=== PATIENT | female | born 1965 | race Caucasian/White ===

== ENCOUNTER → 2018-07-12 12:25 | Outpatient (CLI) | payer BC, OTHER, SELFPAY ==
--- NOTE | 2018-07-12 | DI.MG.S_ITS ---
BILATERAL DIGITAL SCREENING MAMMOGRAM 3D/2D WITH CAD: 07/12/2018 CLINICAL: Routine screening. Comparison is made to exams dated: 06/18/2017 mammogram, 04/08/2015 mammogram, and 02/21/2014 mammogram - [facility]. The tissue of both breasts is extremely dense, which lowers the sensitivity of mammography. Current study was also evaluated with a Computer Aided Detection (CAD) system. There are calcifications in the upper left breast that appear stable when compared with prior exam of 06/18/2017. There is a circular mole marker overlying the left breast. No significant masses, calcifications, or other findings are seen in either breast. There has been no significant interval change. IMPRESSION: BENIGN There is no mammographic evidence of malignancy. A 1 year screening mammogram is recommended. This exam was interpreted at Station ID: [id number]. NOTE: For mammograms, a report in lay terms will be sent to the patient. Approximately 15% of breast malignancies will not be visualized mammographically. In the management of a palpable breast mass, a negative mammogram must not discourage biopsy of a clinically suspicious lesion. Electronically Signed By: Kiran Palmer M.D. ecl/:07/14/2018 07:37:41 letter sent: Normal Exam ACR BI-RADS Category 2: Benign Finding(s) [id number]
== END ==
PROVIDERS: Family Provider Family Medicine; PCP Family Medicine; Visit Provider Family Medicine
DX: Z12.31 Encounter for screening mammogram for malignant neoplasm of breast (principal)
CPT/HCPCS: 77063; 77067

== ENCOUNTER → 2018-12-25 11:45 | Outpatient (CLI) | payer BC, SELFPAY ==
--- NOTE | 2018-12-25 11:47 | DI.RAD.S_ITS ---
PROCEDURE: XR RIBS LT MIN 3V W CXR1V INDICATIONS: R/O Fx TECHNIQUE: 3 views of the left ribs were acquired, to include a single view chest. COMPARISON: None. FINDINGS: Surgical changes and devices: None. Bones and chest wall: No fractures or dislocations. No suspicious bony lesions. Overlying soft tissues appear unremarkable. Lungs and pleura: No pleural effusions or pneumothorax. Lungs appear clear. Mediastinum: Mediastinal contours appear normal. Heart size is normal. IMPRESSION: Chest without acute cardiopulmonary abnormalities. No acute rib fractures identified. Dictated by: George Brown M.D. on 12/25/2018 at 12:35 Approved by: George Brown M.D. on 12/25/2018 at 12:37
== END ==
PROVIDERS: PCP Family Medicine; Visit Provider Physician Assistant
DX: R07.81 Pleurodynia (principal)
CPT/HCPCS: 71101

== ENCOUNTER 2019-04-19 10:00 | Outpatient (RCR) | payer BC, OTHER, SELFPAY ==
--- NOTE | 2019-02-09 10:11 | PT.OIE ---
Current Diagnoses Cystocele, unspecified (02/07/19) Rectocele (02/07/19) Provider Visit Care Team Role Provider Type Venu Valles MD Primary Care Provider Physician Specialty: Family Practice Address: [address] [place], [address] Email: [email or web address] Yaneth Sandoval MD Attending Provider Physician Specialty: MATHS TUTOR Address: [address] [place] [address], [address] Email: [email or web address] Physical Therapy Initial Evaluation PT-OP-A Visit Information Start: 02/07/19 13:44 Freq: Status: Active Protocol: Document 02/07/19 13:45 [facility] (Rec: 02/07/19 14:03 [facility] [id number]) Out-Patient Physical Therapy Visit Information Visit Information Visit Type Initial Evaluation Visit Start Time 13:45 Visit Stop Time 14:30 Total Visit Minutes 45 Visit Number 1 Evaluation Information Evaluation Date 02/07/19 PT-OP-B Current Condition Start: 02/07/19 13:44 Freq: Status: Active Protocol: Document 02/07/19 13:45 [facility] (Rec: 02/07/19 14:03 [facility] [id number]) Current Condition History of Current Condition Onset Date October 2018 Current Complaints pelvic organ prolapse History of Current Condition reports in October she began to feel like she had fullness in her pelvic floor after her cycle finished. Experiencing some c/o pre menopausal symptoms and is noticing that before her menstrual cycle is suppost to start she is feeling fullness in her pelvic floor and increased pressure along iwth some c/o low back soreness. She denies any c/o urinary incontinence or urgency. Prior Functional Status Baseline Function- ADL's Independent Baseline Function- Mobility Independent Baseline Function- Recreation/Hobbies The patient likes to run for exercise and she can feel fullness in her pelvic floor with running at times PT-OP-F Manual Assessment Start: 02/08/19 10:41 Freq: Status: Active Protocol: Document 02/07/19 13:45 [facility] (Rec: 02/08/19 10:43 [facility] [id number]) Manual Assessments Joint Mobility Assessment Joint Mobility Assessment + ASLR left Left leg longer in supine ( wears a lift in the right shoe ) Left hip lacks full ER/IR without movement from the pelvic girdle PT-OP-I Pelvic Floor Start: 02/07/19 13:44 Freq: Status: Active Protocol: Document 02/07/19 13:45 [facility] (Rec: 02/08/19 10:05 [facility] [id number]) Pelvic Floor Assessment Urine Pelvic Floor Surgery No Pelvic Clock Pelvic Clock 3-6 Guarding Tightness SEMG (uV) Baseline 4 10 Second Contraction 13.8 Recruitment Pattern Good Relaxation Poor/Slow Holding Fair Stability of Hold Fair SEMG Stability of Rest Fair Contraction Ability Voluntary Contraction Weak Voluntary Relaxation Moderate Manual Muscle Testing Left 3 Manual Muscle Testing Right 3 Manual Muscle Testing Anterior 3 Manual Muscle Testing Posterior 3 Muscle Endurance (Seconds) 5 Comments Pelvic Floor Comments Able to facilitate all parts of the levator ani with contractions, guarding on the left side of the illiococcygeus and difficulty fully relaxing following a contraction PT-OP-Q Treatments Start: 02/07/19 13:44 Freq: Status: Active Protocol: Document 02/07/19 13:45 [facility] (Rec: 02/08/19 10:05 [facility] [email or web address]) Therapeutic Exercises Supine Exercises 1 Supine Exercise Name long holds utilizing EMG biofeedback 10 second hold time, 10 sec rest Side bilateral Reps/Minutes 10 reps 2 times per day Comments used EMG biofeedback Sidelying Exercises 1 Sidelying Exercise Name sidelying clam shell Side bilateral Reps/Minutes 3 x 10 reps PT-OP-T Assessment and Plan Start: 02/07/19 13:44 Freq: Status: Active Protocol: Document 02/07/19 13:45 [facility] (Rec: 02/08/19 10:05 [facility] [id number]) Physical Therapy Assessment Rehab Potential Rehabilitation Potential Excellent Evaluation Complexity Number of Personal Factors/Comorbidities 0 Number of Body Systems Impaired 1-2 Clinical Presentation at Evaluation Stable Impairments Impairments Activity Tolerance Soft Tissue Mobility Strength Tone Other Impairments vaginal wall prolapse, cystocele, rectocele Goals Four Impairment Decreased overall strength of the levator ani 3/5 MMT Skilled Nursing Goal (LTG) Improve overall strength of the levator ani musculature for improved support of the pelvic organs LTG Duration 8 weeks Three Impairment left hip tightness and SI dysfunction contributing to PFM dysfunction Short Term Goal (STG) Minnie is educated on stretches for the pelvis and hip musculature STG Duration 3-4 weeks Veterinary Technician Instructor Goal (LTG) Minnie presents with improved SI stabilization including negative ASLR test, improved hip ROM and corrected alignment of the SI joint LTG Duration 8 weeks Two Impairment Decreased endurance of the levator ani for pelvic organ support Veterinary Technician Instructor Goal (LTG) Improve endurance of the levator ani to 10 second hold time in supine and 5 sec or better hold time in standing LTG Duration 8 weeks One Impairment c/o pelvic fullness and pressure Short Term Goal (STG) Minnie is educated on pelvic organ prolapse and positioning she can do to decrease symptoms as well as education on avoiding straining activities STG Duration 3-4 weeks Veterinary Technician Instructor Goal (LTG) Minnie reports decreased c/o pelvic pressure and fullness and is able to continue with her activity level LTG Duration 8 weeks Assessment Summary Assessment Minnie Zurita) presents to physical therapy today with symptoms of pelvic organ prolapse and decreased pelvic floor endurance. With examination I am feeling a cystocele and rectocele grade II. She is able to facilitate all parts of the levator ani but is a little guarded on the left side with decreased ability to fully relax her pelvic floor. Her pelvic floor endurance is limited. She also has a small SI dysfunction and left hip lack of freedom of hip rotation that may also be contributing to her pelvic floor imbalance. She is also a runner and would benefit from improving her pelvic floor strength for support of her pelvic organs. Treatment will include EMG biofeedback for improved awareness of her pelvic floor, pelvic floor strengthening, hip flexibility exercises, hip stabilization exercises, SI stabilization and home exercise program. Physical Therapy Plan Frequency and Duration Frequency of Treatment 1x/Week Duration of Treatment 8 weeks Plan of Care Start Date 02/07/19 Plan of Care End Date 04/04/19 Therapeutic Interventions Therapeutic Interventions Home Exercise Program Manual Therapy Neuromuscular Re-education Self-Care/Home Management Soft Tissue Mobilization Therapeutic Exercises Modalities Biofeedback Electric Stimulation Next Visit Focus/Plan Next Note Type Treatment Note Next Visit Plan begin hip strengthening in standing positions including hip hike, side steps with theraband, hip flexibility exercises
--- NOTE | 2019-02-09 10:12 | PT.OPPOC ---
Current Diagnoses Cystocele, unspecified (02/07/19) Rectocele (02/07/19) Provider Visit Care Team Role Provider Type Venu Valles MD Primary Care Provider Physician Specialty: Family Practice Address: [facility] [place], [address] Email: [email or web address] Yaneth Sandoval MD Attending Provider Physician Specialty: FILTER CHANGING TECHNICIAN Address: [address] [place] [address], [address] Email: [email or web address] Plan Of Care PT-OP-T Assessment and Plan Start: 02/07/19 13:44 Freq: Status: Active Protocol: Document 02/07/19 13:45 [facility] (Rec: 02/08/19 10:05 [facility] [email or web address]) Physical Therapy Assessment Rehab Potential Rehabilitation Potential Excellent Evaluation Complexity Number of Personal Factors/Comorbidities 0 Number of Body Systems Impaired 1-2 Clinical Presentation at Evaluation Stable Impairments Impairments Activity Tolerance Soft Tissue Mobility Strength Tone Other Impairments vaginal wall prolapse, cystocele, rectocele Goals Four Impairment Decreased overall strength of the levator ani 3/5 MMT Nursing Home Goal (LTG) Improve overall strength of the levator ani musculature for improved support of the pelvic organs LTG Duration 8 weeks Three Impairment left hip tightness and SI dysfunction contributing to PFM dysfunction Short Term Goal (STG) Minnie is educated on stretches for the pelvis and hip musculature STG Duration 3-4 weeks Infusion Pharmacist Goal (LTG) Minnie presents with improved SI stabilization including negative ASLR test, improved hip ROM and corrected alignment of the SI joint LTG Duration 8 weeks Two Impairment Decreased endurance of the levator ani for pelvic organ support Nursing Home Goal (LTG) Improve endurance of the levator ani to 10 second hold time in supine and 5 sec or better hold time in standing LTG Duration 8 weeks One Impairment c/o pelvic fullness and pressure Short Term Goal (STG) Minnie is educated on pelvic organ prolapse and positioning she can do to decrease symptoms as well as education on avoiding straining activities STG Duration 3-4 weeks Nursing Home Goal (LTG) Minnie reports decreased c/o pelvic pressure and fullness and is able to continue with her activity level LTG Duration 8 weeks Assessment Summary Assessment Minnie (Janell) presents to physical therapy today with symptoms of pelvic organ prolapse and decreased pelvic floor endurance. With examination I am feeling a cystocele and rectocele grade II. She is able to facilitate all parts of the levator ani but is a little guarded on the left side with decreased ability to fully relax her pelvic floor. Her pelvic floor endurance is limited. She also has a small SI dysfunction and left hip lack of freedom of hip rotation that may also be contributing to her pelvic floor imbalance. She is also a runner and would benefit from improving her pelvic floor strength for support of her pelvic organs. Treatment will include EMG biofeedback for improved awareness of her pelvic floor, pelvic floor strengthening, hip flexbility exercises, hip stabilization exercises, SI stabilization and home exercise program. Physical Therapy Plan Frequency and Duration Frequency of Treatment 1x/Week Duration of Treatment 8 weeks Plan of Care Start Date 02/07/19 Plan of Care End Date 04/04/19 Therapeutic Interventions Therapeutic Interventions Home Exercise Program Manual Therapy Neuromuscular Re-education Self-Care/Home Management Soft Tissue Mobilization Therapeutic Exercises Modalities Biofeedback Electric Stimulation Next Visit Focus/Plan Next Note Type Treatment Note Next Visit Plan begin hip strengthening in standing positions including hip hike, side steps with theraband, hip flexibility exercises Plan of Care Dates Plan of Care Start Date 02/07/19 Plan of Care End Date 04/04/19 Please Sign and Return: I have reviewed this Plan of Care and certify that the skilled therapy services above are required to meet the patient?s needs. Physician Signature Date Printed Name and Credentials Clinical Instructor Signature Printed Name and Credentials
--- NOTE | 2019-02-15 14:41 | PT.OTN ---
Current Diagnoses Cystocele, unspecified (02/15/19) Rectocele (02/15/19) Physical Therapy Treatment Note PT-OP-A Visit Information Start: 02/07/19 13:44 Freq: Status: Active Protocol: Document 02/15/19 14:33 [facility] (Rec: 02/15/19 14:40 [facility] [email or web address]) Out-Patient Physical Therapy Visit Information Visit Information Visit Type Treatment Note Visit Start Time 10:45 Visit Stop Time 11:30 Total Visit Minutes 45 Visit Number 2 Evaluation Information Evaluation Date 02/07/19 PT-OP-B Current Condition Start: 02/07/19 13:44 Freq: Status: Active Protocol: Document 02/07/19 13:45 [facility] (Rec: 02/07/19 14:03 [facility] [id number]) Current Condition History of Current Condition Onset Date October 2018 Current Complaints pelvic organ prolapse History of Current Condition reports in October she began to feel like she had fullness in her pelvic floor after her cycle finished. Experiencing some c/o pre menapausel symptoms and is noticing that before her menstrual cycle is suppost to start she is feeling fullness in her pelvic floor and increased pressure along iwth some c/o low back soreness. She denies any c/o urinary incontinence or urgency. Prior Functional Status Baseline Function- ADL's Independent Baseline Function- Mobility Independent Baseline Function- Recreation/Hobbies The patient likes to run for exercise and she can feel fullness in her pelvic floor with running at times PT-OP-C Subjective Start: 02/07/19 13:44 Freq: Status: Active Protocol: Document 02/15/19 14:33 [facility] (Rec: 02/15/19 14:40 [facility] [email or web address]) OP-PT Subjective Patient Comments Patient Comments Janell reports she has been working on her exercises at home. She can tell that her left side is weaker than her right with clam shells PT-OP-F Manual Assessment Start: 02/08/19 10:41 Freq: Status: Active Protocol: Document 02/07/19 13:45 [facility] (Rec: 02/08/19 10:43 [facility] [id number]) Manual Assessments Joint Mobility Assessment Joint Mobility Assessment + ASLR left Left leg longer in supine ( wears a lift in the right shoe ) Left hip lacks full ER/IR without movement from the pelvic girdle PT-OP-I Pelvic Floor Start: 02/07/19 13:44 Freq: Status: Active Protocol: Document 02/07/19 13:45 [facility] (Rec: 02/08/19 10:05 [facility] [email or web address]) Pelvic Floor Assessment Urine Pelvic Floor Surgery No Pelvic Clock Pelvic Clock 3-6 Guarding Tightness SEMG (uV) Baseline 4 10 Second Contraction 13.8 Recruitment Pattern Good Relaxation Poor/Slow Holding Fair Stability of Hold Fair SEMG Stability of Rest Fair Contraction Ability Voluntary Contraction Weak Voluntary Relaxation Moderate Manual Muscle Testing Left 3 Manual Muscle Testing Right 3 Manual Muscle Testing Anterior 3 Manual Muscle Testing Posterior 3 Muscle Endurance (Seconds) 5 Comments Pelvic Floor Comments Able to facilitate all parts of the levator ani with contractions, guarding on the left side of the illiococcygeus and difficulty fully relaxing following a contraction PT-OP-Q Treatments Start: 02/07/19 13:44 Freq: Status: Active Protocol: Document 02/15/19 14:33 [facility] (Rec: 02/15/19 14:40 [facility] [email or web address]) Therapeutic Exercises Supine Exercises 3 Supine Exercise Name templates for eccentric control 2 Supine Exercise Name quick contractions Reps/Minutes 2 sec hold 2 sec relax x 10 reps 1 Supine Exercise Name long holds utilizing EMG biofeedback 10 second hold time, 10 sec rest Side bilateral Reps/Minutes 10 reps 2 times per day Comments used EMG biofeedback Sidelying Exercises 1 Sidelying Exercise Name sidelying clam shell Side bilateral Reps/Minutes 3 x 10 reps Standing Exercises 4 Standing Exercise Name standing hip hikes Reps/Minutes x 20 each 3 Standing Exercise Name side steps with theraband and pelvic floor activation 2 Standing Exercise Name standing single leg squats Reps/Minutes 10 backward and 10 sideways each leg 1 Standing Exercise Name standing squats with pelvic floor activation on the return PT-OP-T Assessment and Plan Start: 02/07/19 13:44 Freq: Status: Active Protocol: Document 02/15/19 14:33 [facility] (Rec: 02/15/19 14:40 [facility] [email or web address]) Physical Therapy Assessment Assessment Summary Assessment Good tolerance for standing dynamic exercises, increased average to 18.3 uv and max to 42 uv today. Resting tone is the same Physical Therapy Plan Next Visit Focus/Plan Next Note Type Treatment Note Next Visit Plan Give handout on hip hikes next visit and continue progressing dynamic strengthening, begin happy baby and rock backs for pelvic floor stretch
--- NOTE | 2019-02-22 14:12 | PT.OTN ---
Current Diagnoses Cystocele, unspecified (02/22/19) Rectocele (02/22/19) Physical Therapy Treatment Note PT-OP-A Visit Information Start: 02/07/19 13:44 Freq: Status: Active Protocol: Document 02/22/19 10:30 [facility] (Rec: 02/22/19 10:50 [facility] [id number]) Out-Patient Physical Therapy Visit Information Visit Information Visit Type Treatment Note Visit Start Time 10:45 Visit Stop Time 11:30 Total Visit Minutes 45 Visit Number 3 PT-OP-B Current Condition Start: 02/07/19 13:44 Freq: Status: Active Protocol: Document 02/07/19 13:45 [facility] (Rec: 02/07/19 14:03 [facility] [id number]) Current Condition History of Current Condition Onset Date October 2018 Current Complaints pelvic organ prolapse History of Current Condition reports in October she began to feel like she had fullness in her pelvic floor after her cycle finished. Experiencing some c/o pre menapausel symptoms and is noticing that before her menstrual cycle is suppost to start she is feeling fullness in her pelvic floor and increased pressure along iwth some c/o low back soreness. She denies any c/o urinary incontinence or urgency. Prior Functional Status Baseline Function- ADL's Independent Baseline Function- Mobility Independent Baseline Function- Recreation/Hobbies The patient likes to run for exercise and she can feel fullness in her pelvic floor with running at times PT-OP-C Subjective Start: 02/07/19 13:44 Freq: Status: Active Protocol: Document 02/22/19 10:30 [facility] (Rec: 02/22/19 10:50 [facility] [id number]) OP-PT Subjective Patient Comments Patient Comments Liz cochran still feel different, has done 6.5 miles running without problems PT-OP-F Manual Assessment Start: 02/08/19 10:41 Freq: Status: Active Protocol: Document 02/07/19 13:45 [facility] (Rec: 02/08/19 10:43 [facility] [id number]) Manual Assessments Joint Mobility Assessment Joint Mobility Assessment + ASLR left Left leg longer in supine ( wears a lift in the right shoe ) Left hip lacks full ER/IR without movement from the pelvic girdle PT-OP-I Pelvic Floor Start: 02/07/19 13:44 Freq: Status: Active Protocol: Document 02/07/19 13:45 [facility] (Rec: 02/08/19 10:05 [facility] [email or web address]) Pelvic Floor Assessment Urine Pelvic Floor Surgery No Pelvic Clock Pelvic Clock 3-6 Guarding Tightness SEMG (uV) Baseline 4 10 Second Contraction 13.8 Recruitment Pattern Good Relaxation Poor/Slow Holding Fair Stability of Hold Fair SEMG Stability of Rest Fair Contraction Ability Voluntary Contraction Weak Voluntary Relaxation Moderate Manual Muscle Testing Left 3 Manual Muscle Testing Right 3 Manual Muscle Testing Anterior 3 Manual Muscle Testing Posterior 3 Muscle Endurance (Seconds) 5 Comments Pelvic Floor Comments Able to facilitate all parts of the levator ani with contractions, guarding on the left side of the illiococcygeus and difficulty fully relaxing following a contraction PT-OP-Q Treatments Start: 02/07/19 13:44 Freq: Status: Active Protocol: Document 02/22/19 10:30 [facility] (Rec: 02/22/19 14:10 [facility] [email or web address]) Therapeutic Exercises Supine Exercises 4 Supine Exercise Name happy baby stretch Comments hold 1-2 minutes 2 Supine Exercise Name quick contractions Reps/Minutes 2 sec hold 2 sec relax x 10 reps 1 Supine Exercise Name long holds utilizing EMG biofeedback 10 second hold time, 10 sec rest Side bilateral Reps/Minutes 10 reps 2 times per day Comments used EMG biofeedback Sidelying Exercises 1 Sidelying Exercise Name sidelying clam shell Side bilateral Reps/Minutes 3 x 10 reps Comments added theraband lev 1 Standing Exercises 4 Standing Exercise Name standing hip hikes Reps/Minutes x 20 each 3 Standing Exercise Name side steps with theraband and pelvic floor activation 2 Standing Exercise Name standing single leg squats Reps/Minutes 10 backward and 10 sideways each leg 1 Standing Exercise Name standing squats with pelvic floor activation on the return Other Exercises 1 Other Exercise Name quadraped rock backs Reps/Minutes x 10 PT-OP-T Assessment and Plan Start: 02/07/19 13:44 Freq: Status: Active Protocol: Document 02/22/19 10:30 [facility] (Rec: 02/22/19 14:10 [facility] [email or web address]) Physical Therapy Assessment Assessment Summary Assessment improved resting tone of the pelvic floor today to 1.5 uv. Hip IR helped to reduce tone. Good tolerance for all exercises without increased c/ o pelvic pressure Physical Therapy Plan Next Visit Focus/Plan Next Note Type Treatment Note Next Visit Plan Review all stabilization exercises, recheck pelvic floor muscle recruitment with manual test next visit
--- NOTE | 2019-03-15 11:53 | PT.OTN ---
Current Diagnoses Cystocele, unspecified (03/15/19) Rectocele (03/15/19) Physical Therapy Treatment Note PT-OP-A Visit Information Start: 02/07/19 13:44 Freq: Status: Active Protocol: Document 03/15/19 11:44 [facility] (Rec: 03/15/19 11:53 [facility] [email or web address]) Out-Patient Physical Therapy Visit Information Visit Information Visit Type Treatment Note Visit Start Time 10:00 Visit Stop Time 10:45 Total Visit Minutes 45 Visit Number 4 PT-OP-B Current Condition Start: 02/07/19 13:44 Freq: Status: Active Protocol: Document 02/07/19 13:45 [facility] (Rec: 02/07/19 14:03 [facility] [id number]) Current Condition History of Current Condition Onset Date October 2018 Current Complaints pelvic organ prolapse History of Current Condition reports in October she began to feel like she had fullness in her pelvic floor after her cycle finished. Experiencing some c/o pre menapausel symptoms and is noticing that before her menstrual cycle is suppost to start she is feeling fullness in her pelvic floor and increased pressure along iwth some c/o low back soreness. She denies any c/o urinary incontinence or urgency. Prior Functional Status Baseline Function- ADL's Independent Baseline Function- Mobility Independent Baseline Function- Recreation/Hobbies The patient likes to run for exercise and she can feel fullness in her pelvic floor with running at times PT-OP-C Subjective Start: 02/07/19 13:44 Freq: Status: Active Protocol: Document 03/15/19 11:44 [facility] (Rec: 03/15/19 11:53 [facility] [email or web address]) OP-PT Subjective Patient Comments Patient Comments Reports she had her cycle and and felt pressure for two days following her cycle. She didn't run those two days PT-OP-F Manual Assessment Start: 02/08/19 10:41 Freq: Status: Active Protocol: Document 02/07/19 13:45 AM[facility] (Rec: 02/08/19 10:43 [facility] [id number]) Manual Assessments Joint Mobility Assessment Joint Mobility Assessment + ASLR left Left leg longer in supine ( wears a lift in the right shoe ) Left hip lacks full ER/IR without movement from the pelvic girdle PT-OP-I Pelvic Floor Start: 02/07/19 13:44 Freq: Status: Active Protocol: Document 02/07/19 13:45 [facility] (Rec: 02/08/19 10:05 [facility] [id number]) Pelvic Floor Assessment Urine Pelvic Floor Surgery No Pelvic Clock Pelvic Clock 3-6 Guarding Tightness SEMG (uV) Baseline 4 10 Second Contraction 13.8 Recruitment Pattern Good Relaxation Poor/Slow Holding Fair Stability of Hold Fair SEMG Stability of Rest Fair Contraction Ability Voluntary Contraction Weak Voluntary Relaxation Moderate Manual Muscle Testing Left 3 Manual Muscle Testing Right 3 Manual Muscle Testing Anterior 3 Manual Muscle Testing Posterior 3 Muscle Endurance (Seconds) 5 Comments Pelvic Floor Comments Able to facilitate all parts of the levator ani with contractions, guarding on the left side of the illiococcygeus and difficulty fully relaxing following a contraction PT-OP-Q Treatments Start: 02/07/19 13:44 Freq: Status: Active Protocol: Document 03/15/19 11:44 [facility] (Rec: 03/15/19 11:53 [facility] [id number]) Therapeutic Exercises Supine Exercises 5 Supine Exercise Name TA stabilization in supine Comments added in marches and level 1 b 1 Supine Exercise Name long holds utilizing EMG biofeedback 10 second hold time, 10 sec rest Side bilateral Reps/Minutes 10 reps 2 times per day Comments used EMG biofeedback Standing Exercises 5 Standing Exercise Name standing lunges 4 Standing Exercise Name standing hip hikes Reps/Minutes x 20 each 3 Standing Exercise Name side steps with theraband and pelvic floor activation 2 Standing Exercise Name standing single leg squats Reps/Minutes 10 backward and 10 sideways each leg 1 Standing Exercise Name standing squats with pelvic floor activation on the return Comments on bosu Other Exercises 2 Other Exercise Name prone over the ball pelvis inversion Comments to decrease pelvic pressure Manual Therapy Treatment Manual Techniques 1 Type reassessment of pelvic floor strength with manual examination Comments pelvic floor strength increased to 4/5 MMT and endurance is 10 seconds, still a little guarded on the left but improved PT-OP-T Assessment and Plan Start: 02/07/19 13:44 Freq: Status: Active Protocol: Document 03/15/19 11:44 [facility] (Rec: 03/15/19 11:53 [facility] [email or web address]) Physical Therapy Assessment Assessment Summary Assessment Good increase in strength today with average at 24.1 uv now which is double her strengthen from beginning PT. MMT is now 4/5. Still feeling some of the prolapse with manual examination. Added in TA stabilization today and Janell would benefit from increased TA work Physical Therapy Plan Frequency and Duration Frequency of Treatment 1x/Week Duration of Treatment 8 weeks Plan of Care Start Date 02/07/19 Plan of Care End Date 04/04/19 Therapeutic Interventions Therapeutic Interventions Home Exercise Program Manual Therapy Neuromuscular Re-education Self-Care/Home Management Soft Tissue Mobilization Therapeutic Exercises Modalities Biofeedback Electric Stimulation Next Visit Focus/Plan Next Note Type Treatment Note Next Visit Plan progress TA stabilization next visit
--- NOTE | 2019-03-22 14:15 | PT.OTN ---
Current Diagnoses Cystocele, unspecified (03/22/19) Rectocele (03/22/19) Physical Therapy Treatment Note PT-OP-A Visit Information Start: 02/07/19 13:44 Freq: Status: Active Protocol: Document 03/22/19 14:09 AM[facility] (Rec: 03/22/19 14:15 [facility] [email or web address]) Out-Patient Physical Therapy Visit Information Visit Information Visit Type Treatment Note Visit Start Time 10:00 Visit Stop Time 10:45 Total Visit Minutes 45 Visit Number 5 PT-OP-B Current Condition Start: 02/07/19 13:44 Freq: Status: Active Protocol: Document 02/07/19 13:45 AM[facility] (Rec: 02/07/19 14:03 [facility] [id number]) Current Condition History of Current Condition Onset Date October 2018 Current Complaints pelvic organ prolapse History of Current Condition reports in October she began to feel like she had fullness in her pelvic floor after her cycle finished. Experiencing some c/o pre menapausel symptoms and is noticing that before her menstrual cycle is suppost to start she is feeling fullness in her pelvic floor and increased pressure along iwth some c/o low back soreness. She denies any c/o urinary incontinence or urgency. Prior Functional Status Baseline Function- ADL's Independent Baseline Function- Mobility Independent Baseline Function- Recreation/Hobbies The patient likes to run for exercise and she can feel fullness in her pelvic floor with running at times PT-OP-C Subjective Start: 02/07/19 13:44 Freq: Status: Active Protocol: Document 03/22/19 14:09 AM[facility] (Rec: 03/22/19 14:15 [facility] [email or web address]) OP-PT Subjective Patient Comments Patient Comments Reports she is on her cycle again as her periods have been inconsistent. PT-OP-F Manual Assessment Start: 02/08/19 10:41 Freq: Status: Active Protocol: Document 02/07/19 13:45 AM[facility] (Rec: 02/08/19 10:43 [facility] [id number]) Manual Assessments Joint Mobility Assessment Joint Mobility Assessment + ASLR left Left leg longer in supine ( wears a lift in the right shoe ) Left hip lacks full ER/IR without movement from the pelvic girdle PT-OP-I Pelvic Floor Start: 02/07/19 13:44 Freq: Status: Active Protocol: Document 02/07/19 13:45 [facility] (Rec: 02/08/19 10:05 [facility] [email or web address]) Pelvic Floor Assessment Urine Pelvic Floor Surgery No Pelvic Clock Pelvic Clock 3-6 Guarding Tightness SEMG (uV) Baseline 4 10 Second Contraction 13.8 Recruitment Pattern Good Relaxation Poor/Slow Holding Fair Stability of Hold Fair SEMG Stability of Rest Fair Contraction Ability Voluntary Contraction Weak Voluntary Relaxation Moderate Manual Muscle Testing Left 3 Manual Muscle Testing Right 3 Manual Muscle Testing Anterior 3 Manual Muscle Testing Posterior 3 Muscle Endurance (Seconds) 5 Comments Pelvic Floor Comments Able to facilitate all parts of the levator ani with contractions, guarding on the left side of the illiococcygeus and difficulty fully relaxing following a contraction PT-OP-Q Treatments Start: 02/07/19 13:44 Freq: Status: Active Protocol: Document 03/22/19 14:09 [facility] (Rec: 03/22/19 14:15 [facility] [email or web address]) Therapeutic Exercises Supine Exercises 5 Supine Exercise Name TA stabilization in supine Comments added in marches and level 1 b Standing Exercises 5 Standing Exercise Name standing lunges 4 Standing Exercise Name standing hip hikes Reps/Minutes x 20 each 3 Standing Exercise Name side steps with theraband and pelvic floor activation 2 Standing Exercise Name standing single leg squats Reps/Minutes 10 backward and 10 sideways each leg 1 Standing Exercise Name standing squats with pelvic floor activation on the return Comments on bosu Other Exercises 5 Other Exercise Name planks 4 Other Exercise Name quadraped thoracic rotation Reps/Minutes x 5 each side 3 Other Exercise Name quadraped OAL Reps/Minutes x 10 1 Other Exercise Name quadraped rock backs Reps/Minutes x 10 PT-OP-T Assessment and Plan Start: 02/07/19 13:44 Freq: Status: Active Protocol: Document 03/22/19 14:09 [facility] (Rec: 03/22/19 14:15 [facility] [email or web address]) Physical Therapy Assessment Assessment Summary Assessment No biofeedback today as Janell was menstruating. I did assess her running form today. There is decreased trunk rotation to the left. Added in quadraped thoracic rotation and foam roll stretch for home Physical Therapy Plan Frequency and Duration Frequency of Treatment 1x/Week Duration of Treatment 8 weeks Plan of Care Start Date 02/07/19 Plan of Care End Date 04/04/19 Therapeutic Interventions Therapeutic Interventions Home Exercise Program Manual Therapy Neuromuscular Re-education Self-Care/Home Management Soft Tissue Mobilization Therapeutic Exercises Modalities Biofeedback Electric Stimulation Next Visit Focus/Plan Next Note Type Treatment Note Next Visit Plan recheck pelvic floor stabilzation next visit and review new TA stabilization exercises
--- NOTE | 2019-04-19 09:46 | PT.OTN ---
Current Diagnoses Cystocele, unspecified (04/12/19) Rectocele (04/12/19) Physical Therapy Treatment Note PT-OP-A Visit Information Start: 02/07/19 13:44 Freq: Status: Active Protocol: Document 04/12/19 09:58 AMH (Rec: 04/12/19 10:13 [facility] [id number]) Out-Patient Physical Therapy Visit Information Visit Information Visit Type Treatment Note Visit Start Time 10:00 Visit Stop Time 10:45 Total Visit Minutes 45 Visit Number 6 PT-OP-B Current Condition Start: 02/07/19 13:44 Freq: Status: Active Protocol: Document 02/07/19 13:45 AMH (Rec: 02/07/19 14:03 [facility] [id number]) Current Condition History of Current Condition Onset Date October 2018 Current Complaints pelvic organ prolapse History of Current Condition reports in October she began to feel like she had fullness in her pelvic floor after her cycle finished. Experiencing some c/o pre menapausel symptoms and is noticing that before her menstrual cycle is suppost to start she is feeling fullness in her pelvic floor and increased pressure along iwth some c/o low back soreness. She denies any c/o urinary incontinence or urgency. Prior Functional Status Baseline Function- ADL's Independent Baseline Function- Mobility Independent Baseline Function- Recreation/Hobbies The patient likes to run for exercise and she can feel fullness in her pelvic floor with running at times PT-OP-C Subjective Start: 02/07/19 13:44 Freq: Status: Active Protocol: Document 04/12/19 09:58 AMH (Rec: 04/12/19 10:13 AM[facility] [id number]) OP-PT Subjective Patient Comments Patient Comments Feels like she is going to start her cycle again. PT-OP-F Manual Assessment Start: 02/08/19 10:41 Freq: Status: Active Protocol: Document 02/07/19 13:45 AMH (Rec: 02/08/19 10:43 [facility] [id number]) Manual Assessments Joint Mobility Assessment Joint Mobility Assessment + ASLR left Left leg longer in supine ( wears a lift in the right shoe ) Left hip lacks full ER/IR without movement from the pelvic girdle PT-OP-I Pelvic Floor Start: 02/07/19 13:44 Freq: Status: Active Protocol: Document 04/12/19 10:53 AM[facility] (Rec: 04/12/19 10:55 [facility] [id number]) Pelvic Floor Assessment Contraction Ability Voluntary Contraction Moderate Voluntary Relaxation Moderate Manual Muscle Testing Left 4 Manual Muscle Testing Right 4 Manual Muscle Testing Anterior 4 Manual Muscle Testing Posterior 4 Muscle Endurance (Seconds) 10 PT-OP-Q Treatments Start: 02/07/19 13:44 Freq: Status: Active Protocol: Document 04/12/19 10:53 AMH (Rec: 04/12/19 10:55 [facility] [id number]) Therapeutic Exercises Supine Exercises 6 Supine Exercise Name foam roll stretch 3 Supine Exercise Name templates for eccentric control 2 Supine Exercise Name quick contractions Reps/Minutes 2 sec hold 2 sec relax x 10 reps 1 Supine Exercise Name long holds utilizing EMG biofeedback 10 second hold time, 10 sec rest Side bilateral Reps/Minutes 10 reps 2 times per day Comments used EMG biofeedback Sidelying Exercises 1 Sidelying Exercise Name sidelying clam shell Side bilateral Reps/Minutes 3 x 10 reps Comments added theraband lev 1 PT-OP-T Assessment and Plan Start: 02/07/19 13:44 Freq: Status: Active Protocol: Document 04/12/19 10:00 AMH (Rec: 04/19/19 09:46 [facility] [email or web address]) Physical Therapy Assessment Assessment Summary Assessment Janell is showing good awareness with all of her exercises. Physical Therapy Plan Frequency and Duration Frequency of Treatment 1x/Week Duration of Treatment 8 weeks Plan of Care Start Date 02/07/19 Plan of Care End Date 04/04/19 Next Visit Focus/Plan Next Note Type Treatment Note Next Visit Plan review all exercises for HEP
--- NOTE | 2019-04-19 12:08 | PT.OTN ---
Current Diagnoses Cystocele, unspecified (04/19/19) Rectocele (04/19/19) Physical Therapy Treatment Note PT-OP-A Visit Information Start: 02/07/19 13:44 Freq: Status: Active Protocol: Document 04/19/19 10:00 AMH (Rec: 04/19/19 10:00 [facility] [id number]) Out-Patient Physical Therapy Visit Information Visit Information Visit Type Treatment Note Visit Start Time 10:00 Visit Stop Time 10:45 Total Visit Minutes 45 Visit Number 7 PT-OP-B Current Condition Start: 02/07/19 13:44 Freq: Status: Active Protocol: Document 02/07/19 13:45 AMH (Rec: 02/07/19 14:03 [facility] [id number]) Current Condition History of Current Condition Onset Date October 2018 Current Complaints pelvic organ prolapse History of Current Condition reports in October she began to feel like she had fullness in her pelvic floor after her cycle finished. Experiencing some c/o pre menapausel symptoms and is noticing that before her menstrual cycle is suppost to start she is feeling fullness in her pelvic floor and increased pressure along iwth some c/o low back soreness. She denies any c/o urinary incontinence or urgency. Prior Functional Status Baseline Function- ADL's Independent Baseline Function- Mobility Independent Baseline Function- Recreation/Hobbies The patient likes to run for exercise and she can feel fullness in her pelvic floor with running at times PT-OP-C Subjective Start: 02/07/19 13:44 Freq: Status: Active Protocol: Document 04/19/19 12:04 AMH (Rec: 04/19/19 12:08 [facility] [email or web address]) OP-PT Subjective Patient Comments Patient Comments on cycle this week, feels good with her home exercise program PT-OP-F Manual Assessment Start: 02/08/19 10:41 Freq: Status: Active Protocol: Document 02/07/19 13:45 AMH (Rec: 02/08/19 10:43 [facility] [id number]) Manual Assessments Joint Mobility Assessment Joint Mobility Assessment + ASLR left Left leg longer in supine ( wears a lift in the right shoe ) Left hip lacks full ER/IR without movement from the pelvic girdle PT-OP-I Pelvic Floor Start: 02/07/19 13:44 Freq: Status: Active Protocol: Document 04/12/19 10:53 AMH (Rec: 04/12/19 10:55 [facility] [id number]) Pelvic Floor Assessment Contraction Ability Voluntary Contraction Moderate Voluntary Relaxation Moderate Manual Muscle Testing Left 4 Manual Muscle Testing Right 4 Manual Muscle Testing Anterior 4 Manual Muscle Testing Posterior 4 Muscle Endurance (Seconds) 10 PT-OP-Q Treatments Start: 02/07/19 13:44 Freq: Status: Active Protocol: Document 04/19/19 12:04 AMH (Rec: 04/19/19 12:08 [facility] [email or web address]) Therapeutic Exercises Supine Exercises 6 Supine Exercise Name foam roll stretch 5 Supine Exercise Name TA stabilization in supine Comments added in marches and level 1 b 2 Supine Exercise Name quick contractions Reps/Minutes 2 sec hold 2 sec relax x 10 reps Comments seated on the ball Sidelying Exercises 1 Sidelying Exercise Name sidelying clam shell Side bilateral Reps/Minutes 3 x 10 reps Comments added theraband lev 1 Standing Exercises 4 Standing Exercise Name standing hip hikes Reps/Minutes x 20 each 3 Standing Exercise Name side steps with theraband and pelvic floor activation 2 Standing Exercise Name standing single leg squats Reps/Minutes 10 backward and 10 sideways each leg 1 Standing Exercise Name standing squats with pelvic floor activation on the return Comments on bosu PT-OP-T Assessment and Plan Start: 02/07/19 13:44 Freq: Status: Active Protocol: Document 04/19/19 12:04 AMH (Rec: 04/19/19 12:08 [facility] [email or web address]) Physical Therapy Assessment Assessment Summary Assessment Overall Janell has shown good improvement of her pelvic floor strength and is independent with her home exercise program. She will be discharged from PT at this time Physical Therapy Plan Discharge Physical Therapy Discharge Reasons Goals Met Discharge Comments DC Patient to a independent home exercise program Next Visit Focus/Plan Next Note Type Discharge Summary
--- NOTE | 2019-10-26 14:54 | PT.OPDS ---
Current Diagnoses Cystocele, unspecified (04/19/19) Rectocele (04/19/19) Visit Care Team Role Provider Type Venu Valles MD Primary Care Provider Non-Staff Specialty: Family Practice Address: [address] [place], [address] Email: [email or web address] Yaneth Sandoval MD Attending Provider Physician Specialty: [employer]ER Address: [address] [place] [address], [address] Email: [email or web address] Visit Number Visit Number 7 Discharge Summary PT-OP-B Current Condition Start: 02/07/19 13:44 Freq: Status: Active Protocol: Document 02/07/19 13:45 AMH (Rec: 02/07/19 14:03 AMH [id number]) Current Condition History of Current Condition Onset Date October 2018 Current Complaints pelvic organ prolapse History of Current Condition reports in October she began to feel like she had fullness in her pelvic floor after her cycle finished. Experiencing some c/o pre menapausel symptoms and is noticing that before her menstrual cycle is suppost to start she is feeling fullness in her pelvic floor and increased pressure along iwth some c/o low back soreness. She denies any c/o urinary incontinence or urgency. Prior Functional Status Baseline Function- ADL's Independent Baseline Function- Mobility Independent Baseline Function- Recreation/Hobbies The patient likes to run for exercise and she can feel fullness in her pelvic floor with running at times PT-OP-C Subjective Start: 02/07/19 13:44 Freq: Status: Active Protocol: Document 04/19/19 12:04 AMH (Rec: 04/19/19 12:08 AMH [id number]) OP-PT Subjective Patient Comments Patient Comments on cycle this week, feels good with her home exercise program PT-OP-F Manual Assessment Start: 02/08/19 10:41 Freq: Status: Active Protocol: Document 02/07/19 13:45 AMH (Rec: 02/08/19 10:43 AMH [id number]) Manual Assessments Joint Mobility Assessment Joint Mobility Assessment + ASLR left Left leg longer in supine ( wears a lift in the right shoe ) Left hip lacks full ER/IR without movement from the pelvic girdle PT-OP-I Pelvic Floor Start: 02/07/19 13:44 Freq: Status: Active Protocol: Document 04/12/19 10:53 AMH (Rec: 04/12/19 10:55 AMH [id number]) Pelvic Floor Assessment Contraction Ability Voluntary Contraction Moderate Voluntary Relaxation Moderate Manual Muscle Testing Left 4 Manual Muscle Testing Right 4 Manual Muscle Testing Anterior 4 Manual Muscle Testing Posterior 4 Muscle Endurance (Seconds) 10 PT-OP-T Assessment and Plan Start: 02/07/19 13:44 Freq: Status: Active Protocol: Document 04/19/19 12:04 AMH (Rec: 04/19/19 12:08 AMH [id number]) Physical Therapy Assessment Assessment Summary Assessment Overall Janell has shown good improvement of her pelvic floor strength and is independent with her home exercise program. She will be discharged from PT at this time Physical Therapy Plan Discharge Physical Therapy Discharge Reasons Goals Met Discharge Comments DC Patient to a independent home exercise program Next Visit Focus/Plan Next Note Type Discharge Summary
== END 2019-04-20 12:30 ==
LOC: PHYS 10:00
PROVIDERS: PCP Family Medicine; Visit Provider Specialist
DX: N81.10 Cystocele, unspecified (principal); N81.6 Rectocele
CPT/HCPCS: 97110; 97161

== ENCOUNTER 2019-06-27 08:36 | Day surgery (SDC) | payer BC, OTHER, SELFPAY ==
--- NOTE | 2019-06-27 | PATH_ITS ---
[facility] Accession Number: [id number] . 01 Material submitted: . colon - COLON POLYP AT 65 CM . 01 Clinical history: . ENCOUNTER FOR SCREENING FOR MALIGNANT NEOPLASM . 02 Diagnosis: Colon At 65 CM, Polyp: Tubular adenoma. I/06/28/2019 . 02 Electronically signed: . Miller Wills MD, PhD, Pathologist NPI- [id number] . 01 Gross description: . COLON POLYP AT 65 CM: Received in formalin are 2 fragment(s) of simons, soft tissue measuring 0.5 x 0.3 x 0.1 cm to 0.4 x 0.3 x 0.2 cm submitted entirely in 1 cassette(s) /CKI /CKI . 02 Pathologist provided ICD-10: D12.6 . 02 CPT . 068827 Performed at: [facility] [address] [place] [address], [place], [place] [id number] MD Constantin Natarajan MD Phone: [phone] Performed at: 02 [facility] [address] [place], [place] [id number] MD Whit Aleman MD Phone: [phone]
[2019-06-27 08:55] VITALS: BP 122/69; PULSE 51; RESP 15; TEMP 36.2; O2SAT 100; BMI 20.4
--- NOTE | 2019-06-27 10:09 | PM.HP.1 ---
History of Present Illness History of Present Illness Date Patient Seen: 06/27/19 Time Patient Seen: 10:09 Chief complaint: [id number] Narrative: The patient is a woman here for screening colonoscopy. Last exam was 6 years ago. She has a personal history of polyps. Patient History Medical History Bicuspid aortic valve (Acute) Surgical History (Updated 06/27/19 @ 10:11 by Fernando Meléndez MD) Status post ureteral reimplantation (Acute) Family History Child Age: 26 ADHD (attention deficit hyperactivity disorder) Motor tic disorder Father Melanoma Gout Hypertension Social History household members: spouse Smoking Status: Never smoker Family & Social History Family History Child Age: 26 ADHD (attention deficit hyperactivity disorder) Motor tic disorder Father Melanoma Gout Hypertension Social History: household members spouse Tobacco & Substance use: Smoking Status Never smoker Meds Home Medications and Allergies Home Medications Medication Instructions Recorded Confirmed Type Cetirizine Hydrochloride (ZYRTEC) 5 mg PO Q DAY PRN #0 08/31/11 06/27/19 History multivitamin 1 tab PO DAILY 06/27/19 06/27/19 History Allergies Allergy/AdvReac Type Severity Reaction Status Date / Time No Known Drug Allergies Allergy Verified 12/28/18 10:49 Review of Systems Review of Systems ROS Unobtainable: All systems reviewed & are unremarkable except as noted in HPI and below Exam Vital Signs (past 8 hours): - 06/27/19 08:55 Temperature 97.2 F L Pulse Rate 51 L Respiratory Rate 15 Blood Pressure 122/69 Pulse Oximetry 100 Oxygen Delivery Method Room Air Narrative Exam Narrative: Pleasant cooperative patient no apparent distress. Lungs are clear to auscultation. No rales or rhonchi. Heart regular rate and rhythm no murmur gallop. Abdomen is soft nontender without mass. No obvious hernias. Patient is alert and oriented x3. Assessment & Plan Assessment & Plan narrative: The patient for a screening colonoscopy. I have discussed the procedure with them. Risks of bleeding, perforation which would necessitate major operation, failure to find remove all lesions, the potential tattoo were all discussed. All questions were answered. They wished to proceed.
[2019-06-27] MEDS: fentaNYL 250 MCG/5 ML INJ IV (10:12)
[2019-06-27] MEDS: MIDAZOLAM 5 MG/5 ML VIAL IV (10:12)
--- NOTE | 2019-06-27 10:12 | PM.PREOP ---
Pre-operative Note Interval Note History & Physical reviewed/Exam performed by Physician: Yes Changes to H&P: No ASA Class (for procedural sedation): I
--- NOTE | 2019-06-27 10:39 | PM.OP.ENDO ---
Operative Date/Time/Diagnoses Date of procedure: 06/27/19 Time of procedure: 10:39 Pre-op diagnosis: Screening exam. Personal history of polyps. Last exam 6 years ago. Post-op diagnosis: same (Diverticulosis. One tiny polyp at 65 cm. ) Procedure & Clinicians Study performed: Colonoscopy with cold biopsy Same procedure as scheduled: Yes Indications: See preop Surgeon: Fernando Meléndez Procedure Notes SCOAP/Timeout: Performed Procedure in detail: The patient was placed in the left lateral decubitus position and underwent IV sedation directed by the surgeon consisting of fentanyl and Versed. Digital exam was unremarkable. The scope was inserted and advanced through the rectum into the sigmoid, descending, transverse, and ascending colon. Patient was noted to have sigmoid diverticulosis. The cecum was reached identified by the ileocecal valve and the appendiceal opening. The ileocecal valve was successfully cannulated. The terminal ileum was normal in appearance. The scope was gradually brought out. One Polyps was found at 65 cm. It was biopsied and completely removed. It was tiny in size.. The scope ultimately was retroflexed in the rectum. The appearance was normal. The scope was removed and the patient tolerated the procedure well. Prep was very good. Scope withdrawal time: 8 minutes Sedation minutes: 22 Findings: diverticulosis (Sigmoid) and polyp Specimen(s): other (Polyp) Complications: none Post-procedure Recommendations: Colonscopy in 5 years Follow up: as needed Disposition: PACU
[2019-06-27 10:45] VITALS: BP 119/60; PULSE 56; RESP 10; TEMP 36.6; O2SAT 99
[2019-06-27 10:50] VITALS: BP 109/46; PULSE 66; RESP 12; TEMP 36.9; O2SAT 97
[2019-06-27 10:55] VITALS: BP 121/58; PULSE 52; RESP 12; TEMP 36.9; O2SAT 98
[2019-06-27 10:57] VITALS: BP 115/54; PULSE 59; RESP 12; TEMP 36.8; O2SAT 98
== END 2019-06-27 11:10 | disposition home or self-care (01) ==
PROVIDERS: PCP Family Medicine; Visit Provider Specialist
PROC: 0DJD8ZZ Inspection of Lower Intestinal Tract, Via Natural or Artificial Opening Endoscopic (ICD-10-PCS; CPT 45378; principal; 2019-06-27 10:00)
DX: Z86.010 Personal history of colon polyps (principal); K57.30 Diverticulosis of large intestine without perforation or abscess without bleeding; D12.6 Benign neoplasm of colon, unspecified
CPT/HCPCS: 45380; 99152; J2250; J3010

== ENCOUNTER → 2019-08-11 11:43 | Outpatient (CLI) | payer BC, OTHER, SELFPAY ==
--- NOTE | 2019-08-11 | DI.MG.S_ITS ---
BILATERAL DIGITAL SCREENING MAMMOGRAM 3D/2D WITH CAD: 08/11/2019 CLINICAL: Routine screening. Comparison is made to exams dated: 07/12/2018 mammogram, 06/18/2017 mammogram, 04/08/2015 mammogram, 02/21/2014 mammogram, 02/16/2013 mammogram, and 01/29/2012 mammogram - [facility]. The tissue of both breasts is extremely dense, which lowers the sensitivity of mammography. Current study was also evaluated with a Computer Aided Detection (CAD) system. There are stable benign calcifications in the left breast. No significant masses, calcifications, or other findings are seen in either breast. There has been no significant interval change. IMPRESSION: There is no mammographic evidence of malignancy. A 1 year screening mammogram is recommended. This exam was interpreted at Station ID: [id number]. NOTE: For mammograms, a report in lay terms will be sent to the patient. Approximately 15% of breast malignancies will not be visualized mammographically. In the management of a palpable breast mass, a negative mammogram must not discourage biopsy of a clinically suspicious lesion. Electronically Signed By: Percy deal/belinda:08/11/2019 14:08:25 letter sent: Normal Exam ACR BI-RADS Category 2: Benign Finding(s) [id number]
== END ==
PROVIDERS: PCP Family Medicine; Visit Provider Family Medicine
DX: Z12.31 Encounter for screening mammogram for malignant neoplasm of breast (principal)
CPT/HCPCS: 77063; 77067

== ENCOUNTER → 2020-03-27 09:08 | Outpatient (CLI) | payer BC, OTHER, SELFPAY ==
--- NOTE | 2020-03-27 | DI.ECHO.S_ITS ---
[facility] +---------+ : : [address] : : : : [id number] : : : : Phone: [phone]---------+ Echocardiogram Report + + :Name: RAQUEL MAYEN Study Date: 03/27/2020 Height: 63 in : :[facility] Weight: 119 lb : : Gender: Female BSA: 1.6 m2 : :: 1965 Age: 54 yrs BP: 108/70 mmHg: :Reason For Study: Bicuspid aortic valve : :Ordering Physician: Aj : :Kobi Funez Performed By: Nila Rogers : :Referring: AJ PEACE : + + Interpretation Summary The left ventricle is normal in size. The ejection fraction is estimated to be 60-65%. This is unchanged compared to the previous study. Diastolic parameters suggest probable normal left ventricular diastolic function and normal filling pressures. The right ventricle is normal in size and function. The right ventricular systolic pressure is estimated to be at least 29 mmHg based on an estimated right atrial pressure of 3 mm Hg. The left atrium is moderately dilated. Right atrial size is normal. The aortic valve is bicuspid. The aortic valve opens well. There is no other significant valvular heart disease. The aortic root is normal size. Procedure: A two-dimensional transthoracic echocardiogram with color flow and Doppler was performed. The study quality was technically good. There is no prior echocardiogram noted for this patient. The patient was in sinus bradycardia with heart rates between 47-60 bpm during the exam. Left Ventricle: The left ventricle is normal in size. There is normal left ventricular wall thickness. The ejection fraction is estimated to be 60-65%. This is unchanged compared to the previous study. There are no focal wall motion abnormalities. Diastolic parameters suggest probable normal left ventricular diastolic function and normal filling pressures. Right Ventricle: The right ventricle is normal in size and function. Atria: The left atrium is moderately dilated. Right atrial size is normal. The interatrial septum is intact with no evidence for an atrial septal defect. Mitral Valve: The mitral valve is normal in structure and function. There is trace mitral regurgitation. Aortic Valve: The aortic valve is bicuspid. The aortic valve opens well. There is no aortic valve stenosis. There is trace aortic regurgitation. Tricuspid Valve: The tricuspid valve is normal in structure and function. There is trace tricuspid regurgitation. The right ventricular systolic pressure is estimated to be at least 29 mmHg based on an estimated right atrial pressure of 3 mm Hg. Pulmonic Valve: The pulmonic valve is normal in structure and function. There is trace pulmonic regurgitation. There is no other significant valvular heart disease. Great Vessels: The aortic root is normal size. The dimensions of the ascending aorta are normal. The pulmonary artery is normal size. Pericardium/ Pleura There is no pericardial effusion. There is no pleural effusion. MMode/2D Measurements & Calculations LVIDd: 5.0 cm LVOT diam: 2.2 cm LVIDs: 3.4 cm Ao root diam: 2.2 cm FS: 32.0 % asc Aorta Diam: 3.4 cm EPSS: 0.68 cm Ao Arch Diam (Prox Trans): 2.5 cm IVSd: 0.78 cm LVPWd: 0.79 cm LV camp. diameter/BSA (cm/m^2): 3.2 LV sys. diameter/BSA (cm/m^2): 2.2 LA A2 area: 20.3 cm2 RA long axis: 4.7 cm LA A4 area: 18.9 cm2 RA area: 14.1 cm2 LA length (vol): 5.0 cm RA vol: 36.0 ml LA vol: 64.7 ml RA : 23.2 ml/m2 LA vol index: 41.7 ml/m2 IVC diam: 1.6 cm RVD1 (basal): 3.6 cm TAPSE: 2.6 cm Doppler Measurements & Calculations Ao V2 max: 172.1 cm/sec LVOT Max Talha: 87.0 cm/sec Ao V2 mean: 114.8 cm/sec LV V1 max P.0 mmHg Ao max P.9 mmHg LV V1 VTI: 22.4 cm Ao mean P.2 mmHg ERIN(I,D): 2.0 cm2 Ao V2 VTI: 41.6 cm ERIN(V,D): 1.9 cm2 sev ratio: 0.54 ERIN indexed to BSA (cm^2/m^2): 1.3 MV E max talha: 77.7 cm/sec TR max talha: 257.7 cm/sec MV A max talha: 65.2 cm/sec TR max P.6 mmHg MV E/A: 1.2 PA V2 max: 82.4 cm/sec Med Peak E' Talha: 8.0 cm/sec PA V2 mean: 53.9 cm/sec E/E' med: 9.7 PA mean P.4 mmHg Lat Peak E' Talha: 10.8 cm/sec E/E' lat: 7.2 E/e' average: 8.4 MV dec time: 0.21 sec SV(LVOT): 82.0 ml Reading Physician:02:06 PM
== END ==
PROVIDERS: PCP Family Medicine; Referring Provider Internal Medicine Cardiovascular Disease; Visit Provider Internal Medicine Cardiovascular Disease
DX: Q23.1 Congenital insufficiency of aortic valve (principal)
CPT/HCPCS: 93306

== ENCOUNTER → 2020-08-28 08:15 | Outpatient (CLI) | payer BC, OTHER, SELFPAY ==
--- NOTE | 2020-08-28 | DI.MG.S_ITS ---
BILATERAL DIGITAL SCREENING MAMMOGRAM 3D/2D WITH CAD: 08/28/2020 CLINICAL: Routine screening. Comparison is made to exams dated: 08/11/2019 mammogram, 07/12/2018 mammogram, 06/18/2017 mammogram, 04/08/2015 mammogram, and 02/21/2014 mammogram - [facility]. The tissue of both breasts is extremely dense, which lowers the sensitivity of mammography. Current study was also evaluated with a Computer Aided Detection (CAD) system. There is possible architectural distortion in the left breast at 11 o'clock middle depth. Finding is seen only on tomography. There is associated or adjacent grouped heterogeneous calcifications which appear more prominent. No other significant masses, calcifications, or other findings are seen in either breast. IMPRESSION: INCOMPLETE: NEEDS ADDITIONAL IMAGING EVALUATION Possible architectural distortion in the left breast is indeterminate. Additional views with possible ultrasound are recommended. This exam was interpreted at Station ID: [id number]. NOTE: For mammograms, a report in lay terms will be sent to the patient. Approximately 15% of breast malignancies will not be visualized mammographically. In the management of a palpable breast mass, a negative mammogram must not discourage biopsy of a clinically suspicious lesion. Electronically Signed By: Percy Georges M.D. slc/:08/28/2020 08:56:20 letter sent: Additional Imaging Needed ACR BI-RADS Category 0: Incomplete 3340F
== END ==
PROVIDERS: PCP Student in an Organized Health Care Education/Training Program; Referring Provider Student in an Organized Health Care Education/Training Program; Visit Provider Student in an Organized Health Care Education/Training Program
DX: Z12.31 Encounter for screening mammogram for malignant neoplasm of breast (principal)
CPT/HCPCS: 77063; 77067

== ENCOUNTER → 2020-09-17 15:06 | Outpatient (CLI) | payer BC, OTHER, SELFPAY ==
--- NOTE | 2020-09-17 | DI.US.S_ITS ---
LIMITED ULTRASOUND OF LEFT BREAST: 09/17/2020 CLINICAL: Patient returns today to evaluate a focal asymmetry in the left breast. Comparison is made to exams dated: 08/28/2020 mammogram, 08/11/2019 mammogram, 07/12/2018 mammogram, 06/18/2017 mammogram, 04/08/2015 mammogram, and 09/17/2020 mammogram - [facility]. Real-time ultrasound of the left breast 11 o'clock region was performed. Cardona scale images of the real-time examination were reviewed. No significant abnormalities were seen sonographically in the left breast in the region of focal asymmetry and calcifications. IMPRESSION: SUSPICIOUS OF MALIGNANCY No ultrasound correlate for the focal asymmetry and grouped fine and heterogeneous calcifications in the left breast. A stereotactic biopsy of the left breast 11:00 middle depth targeting the grouped calcifications is recommended. Exam findings were discussed with the patient by Dr. Derian Ladd. This exam was interpreted at Station ID: [id number]. Electronically Signed By: Percy Georges M.D. slc/:09/17/2020 16:46:02 letter sent: Biopsy Required Ultrasound BI-RADS: 4a Low suspicion for malignancy
--- NOTE | 2020-09-17 | DI.MG.S_ITS ---
UNILATERAL LEFT DIGITAL DIAGNOSTIC MAMMOGRAM 3D/2D WITH ADDITIONAL VIEWS: 09/17/2020 CLINICAL: Additional evaluation requested from prior study. Comparison is made to exams dated: 08/28/2020 mammogram, 08/11/2019 mammogram, and 07/12/2018 mammogram - [facility]. The tissue of left breast is extremely dense, which lowers the sensitivity of mammography. There is possible an architectural distortion with grouped fine and heterogeneous calcifications in the left breast at 11 o'clock middle depth. Architectural distortion is not definitely seen on additional views. Calcifications are confirmed. No other significant masses or calcifications are seen in the breast. IMPRESSION: INCOMPLETE: NEEDS ADDITIONAL IMAGING EVALUATION The possible architectural distortion with grouped fine and heterogeneous calcifications in the left breast is indeterminate. A targeted ultrasound is recommended and will immediately follow. This exam was interpreted at Station ID: [id number]. NOTE: For mammograms, a report in lay terms will be sent to the patient. Approximately 15% of breast malignancies will not be visualized mammographically. In the management of a palpable breast mass, a negative mammogram must not discourage biopsy of a clinically suspicious lesion. Electronically Signed By: Percy Georges M.D. [facility] [place]/:09/17/2020 16:05:31 ACR BI-RADS Category 0: Incomplete 3340F
== END ==
PROVIDERS: PCP Student in an Organized Health Care Education/Training Program; Referring Provider Student in an Organized Health Care Education/Training Program; Visit Provider Student in an Organized Health Care Education/Training Program
DX: R92.8 Other abnormal and inconclusive findings on diagnostic imaging of breast (principal); R92.1 Mammographic calcification found on diagnostic imaging of breast
CPT/HCPCS: 76642; 77065; G0279

== ENCOUNTER → 2021-03-20 16:37 | Outpatient (CLI) | payer BC, OTHER, SELFPAY ==
--- NOTE | 2021-03-20 | DI.MRI.S_ITS ---
PROCEDURE: MR ANKLE RT WO CON INDICATIONS: Pain in right ankle and joints of right foot TECHNIQUE: Noncontrast sagittal T1 spin echo and T2 fast spin echo with fat saturation, axial proton density fast spin echo and T2 fast spin echo with fat saturation, coronal T1 spin echo and T2 fast spin echo with fat saturation through the ankle/hindfoot. COMPARISON: None. FINDINGS: Image quality: Excellent. Bones and joints: No bone marrow contusions or fractures. No hindfoot coalitions. Osteoarthritic changes involving talonavicular joint with dorsal marginal osteophyte formation is seen. No osteochondral injuries of the talar dome. No pathologic joint effusions. Medial structures: The posterior tibialis, flexor digitorum longus, and flexor hallucis longus tendons are intact. 1.4 x 0.9 x 1.3 cm cystic structure adjacent to posterior medial aspect of tibiotalar joint and situated between flexor digitorum longus and flexor hallucis longus tendons is seen contains thin internal septation and likely represent a ganglion cyst. The posterior tibial neurovascular bundle appears normal within the tarsal tunnel, without extrinsic mass effect. The deep layer (anterior and posterior tibiotalar ligaments) and superficial layer (tibionavicular, tibiospring, and tibiocalcaneal ligaments) of the deltoid ligament appear normal. The spring ligament components (superomedial calcaneonavicular, medioplantar oblique calcaneonavicular, and inferoplantar longitudinal ligaments) are intact. Lateral structures: The anterior talofibular, calcaneofibular, and posterior talofibular ligaments appear intact. More superiorly, the anterior and posterior tibiofibular ligaments appear intact, as is the intermalleolar ligament. The tibiofibular syndesmosis is normal in width at 2 mm or less. The peroneus longus and brevis tendons demonstrate normal location and morphology. Adjacent bony peroneal tubercle and retrotrochlear prominence are normal in size. The sinus tarsi demonstrates normal fatty signal, without edema, fibrosis, or cyst formation. Visualized sinus tarsi components (cervical ligament, interosseous talocalcaneal ligament, roots of the inferior extensor retinaculum) appear normal. The calcaneonavicular and calcaneocuboid components of the bifurcate ligament appear intact. The dorsal calcaneocuboid ligament appears intact. Anterior structures: The tibialis anterior, extensor hallucis longus, and extensor digitorum longus tendons appear intact. The dorsal talonavicular ligament appears intact. Posterior and plantar structures: Achilles tendon is intact. Mildly thickened medial band of plantar fascia near its insertion on plantar calcaneus is seen with mild surrounding soft tissue edema suggestive of low-grade plantar fasciitis. No abductor digiti quinti muscle atrophy to suggest Shane neuropathy. IMPRESSION: 1. Osteoarthritic changes involving talonavicular joint. No marrow edema. No fracture or dislocation. No evidence of osteochondral lesion of talar dome. 2. Suggestion of a septated ganglion cyst in posterior medial aspect of ankle situated between flexor digitorum longus and flexor hallucis longus tendons at the level of tibiotalar joint measures 1.4 x 0.9 x 1.3 cm in size. 3. Extensor, flexor, peroneus and Achilles tendons are intact. Medial and lateral ankle ligaments are grossly intact. 4. Very mild thickening involving medial band of plantar fascia near its insertion on plantar calcaneus concerning for low-grade plantar fasciitis. Dictated by: Kendall Graff M.D. on 03/21/2021 at 9:32 Approved by: Kendall Graff M.D. on 03/21/2021 at 10:07
== END ==
PROVIDERS: PCP Student in an Organized Health Care Education/Training Program; Referring Provider Podiatrist; Visit Provider Podiatrist
DX: M25.571 Pain in right ankle and joints of right foot (principal)
CPT/HCPCS: 73721

== ENCOUNTER → 2021-03-26 08:16 | Outpatient (CLI) | payer BC, OTHER, SELFPAY | PROVIDERS: PCP Student in an Organized Health Care Education/Training Program; Referring Provider Podiatrist; Visit Provider Podiatrist | DX: Z01.818 Encounter for other preprocedural examination (principal) | CPT/HCPCS: 93005 ==

== ENCOUNTER → 2021-12-18 10:41 | Outpatient (CLI) | payer BC, OTHER, SELFPAY ==
--- NOTE | 2021-12-18 | DI.MG.S_ITS ---
BILATERAL DIGITAL SCREENING MAMMOGRAM 3D/2D WITH CAD: 12/18/2021 CLINICAL: Routine screening. Comparison is made to exams dated: 08/28/2020 mammogram, 08/11/2019 mammogram, 07/12/2018 mammogram - [facility], and 09/26/2020 stereotactic biopsy - [facility]. The tissue of both breasts is extremely dense, which lowers the sensitivity of mammography. Current study was also evaluated with a Computer Aided Detection (CAD) system. There is a biopsy clip in the left breast. There is a possible irregular focal asymmetry in the right breast at 12 o'clock middle depth. This is more prominent. No other significant masses, calcifications, or other findings are seen in either breast. IMPRESSION: INCOMPLETE: NEEDS ADDITIONAL IMAGING EVALUATION The possible irregular focal asymmetry in the right breast is indeterminate. Additional views with possible ultrasound are recommended. This exam was interpreted at Station ID: [id number]. NOTE: For mammograms, a report in lay terms will be sent to the patient. Approximately 15% of breast malignancies will not be visualized mammographically. In the management of a palpable breast mass, a negative mammogram must not discourage biopsy of a clinically suspicious lesion. Electronically Signed By: Raciel higginbotham/belinda:12/18/2021 12:02:36 letter sent: Additional Imaging Needed ACR BI-RADS Category 0: Incomplete 3340F
== END ==
PROVIDERS: PCP Student in an Organized Health Care Education/Training Program; Referring Provider Student in an Organized Health Care Education/Training Program; Visit Provider Student in an Organized Health Care Education/Training Program
DX: Z12.31 Encounter for screening mammogram for malignant neoplasm of breast (principal)
CPT/HCPCS: 77063; 77067

== ENCOUNTER → 2022-01-27 08:43 | Outpatient (CLI) | payer BC, OTHER, SELFPAY ==
--- NOTE | 2022-01-27 | DI.MG.S_ITS ---
UNILATERAL RIGHT DIGITAL DIAGNOSTIC MAMMOGRAM 3D/2D WITH ADDITIONAL VIEWS: 01/27/2022 CLINICAL: Additional evaluation requested from prior study. Comparison is made to exams dated: 12/18/2021 mammogram, 08/28/2020 mammogram, 08/11/2019 mammogram, and 07/12/2018 mammogram - [facility]. The tissue of right breast is heterogeneously dense. This may lower the sensitivity of mammography. There is a possible irregular focal asymmetry in the right breast at 12 o'clock middle depth. This is less prominent. This asymmetry partially disperses with spot compression. No other significant masses or calcifications are seen in the breast. IMPRESSION: INCOMPLETE: NEEDS ADDITIONAL IMAGING EVALUATION The possible irregular focal asymmetry in the right breast resembles fibroglandular tissue and is indeterminate. Targeted ultrasound is recommended for further evaluation, which will be performed immediately following this exam. This exam was interpreted at Station ID: [id number]. NOTE: For mammograms, a report in lay terms will be sent to the patient. Approximately 15% of breast malignancies will not be visualized mammographically. In the management of a palpable breast mass, a negative mammogram must not discourage biopsy of a clinically suspicious lesion. Electronically Signed By: Raciel higginbotham/belinda:01/27/2022 10:15:35 ACR BI-RADS Category 0: Incomplete 3340F
--- NOTE | 2022-01-27 | DI.US.S_ITS ---
LIMITED ULTRASOUND OF RIGHT BREAST: 01/27/2022 CLINICAL: Patient returns today to evaluate a focal asymmetry in the right breast. Comparison is made to exams dated: 01/27/2022 mammogram, 12/18/2021 mammogram, 08/28/2020 mammogram, 08/11/2019 mammogram, and 07/12/2018 mammogram - [facility]. Real-time ultrasound of the right breast 12 o'clock region was performed. Cardona scale images of the real-time examination were reviewed. No significant abnormalities were seen sonographically in the right breast. IMPRESSION: NEGATIVE There is no sonographic evidence of malignancy. There is no abnormality seen in the right breast to correspond with the mammography finding which is consistent with normal fibroglandular tissue. Return to annual mammogram screening schedule is recommended. This exam was interpreted at Station ID: [id number]. Electronically Signed By: Raciel higginbotham/belinda:01/27/2022 10:17:27 letter sent: Normal Exam Ultrasound BI-RADS: 1 Negative
== END ==
PROVIDERS: PCP Student in an Organized Health Care Education/Training Program; Referring Provider Student in an Organized Health Care Education/Training Program; Visit Provider Student in an Organized Health Care Education/Training Program
DX: R92.8 Other abnormal and inconclusive findings on diagnostic imaging of breast (principal)
CPT/HCPCS: 76642; 77065; G0279

== ENCOUNTER → 2022-08-01 17:02 | Outpatient (CLI) | payer BC, OTHER, SELFPAY | PROVIDERS: PCP Student in an Organized Health Care Education/Training Program; Visit Provider Nurse Practitioner Family | DX: N39.0 Urinary tract infection, site not specified (principal); R30.0 Dysuria | CPT/HCPCS: 87086; 87210 ==

== ENCOUNTER → 2023-02-17 08:04 | Outpatient (CLI) | payer BC, OTHER, SELFPAY ==
--- NOTE | 2023-02-17 | DI.MG.S_ITS ---
BILATERAL DIGITAL SCREENING MAMMOGRAM 3D/2D WITH CAD: 02/17/2023 CLINICAL: Routine screening. Comparison is made to exams dated: 12/18/2021 mammogram, 08/28/2020 mammogram, and 08/11/2019 mammogram - [facility]. Both breasts are heterogeneously dense, which may obscure small masses (category c / 51-75% glandular tissue). Current study was also evaluated with a Computer Aided Detection (CAD) system. There is a biopsy clip in the left breast. No significant masses, calcifications, or other findings are seen in either breast. There has been no significant interval change. IMPRESSION: NEGATIVE There is no mammographic evidence of malignancy. A 1 year screening mammogram is recommended. Based on the Tyrer Cuzick model (a risk assessment model) the patient's lifetime risk is 12.9% and her 10 year risk is 4.5%. According to the ACR, ACS, and NCCN guidelines, an annual breast MRI exam along with mammogram is recommended if the patient's lifetime risk is 20% or greater. This exam was interpreted at Station ID: [id number]. NOTE: For mammograms, a report in lay terms will be sent to the patient. Approximately 15% of breast malignancies will not be visualized mammographically. In the management of a palpable breast mass, a negative mammogram must not discourage biopsy of a clinically suspicious lesion. Electronically Signed By: Lesly jasso/belinda:02/17/2023 13:15:26 letter sent: Normal Exam ACR BI-RADS Category 1: Negative 3341F
== END ==
PROVIDERS: PCP Internal Medicine; Referring Provider Internal Medicine; Visit Provider Internal Medicine
DX: Z12.31 Encounter for screening mammogram for malignant neoplasm of breast (principal)
CPT/HCPCS: 77063; 77067

== ENCOUNTER → 2023-10-07 08:26 | Outpatient (CLI) | payer BC, OTHER, SELFPAY ==
--- NOTE | 2023-10-07 08:31 | DI.RAD.S_ITS ---
PROCEDURE: XR SHOULDER LT MIN 2V INDICATIONS: Left upper extremity injury TECHNIQUE: 3 views of the shoulder were acquired. COMPARISON: None. FINDINGS: Bones: Acute, mildly displaced fracture of the greater tuberosity of the humeral head. No dislocation. No suspicious bony lesions. Visualized ribs appear intact. Soft tissues: No suspicious soft tissue calcifications. IMPRESSION: Acute, mildly displaced fracture of the greater tuberosity of the humeral head. Dictated by: Oskar Espinal M.D. on 10/07/2023 at 14:45 Approved by: Oskar Espinal M.D. on 10/07/2023 at 14:47
--- NOTE | 2023-10-07 08:31 | DI.RAD.S_ITS ---
PROCEDURE: XR CLAVICLE LT INDICATIONS: Left upper extremity injury TECHNIQUE: 2 views of the clavicle were acquired. COMPARISON: [facility], CR, XR SHOULDER LT MIN 2V, 10/07/2023, 8:33. FINDINGS: Bones: Half shaft width superior displacement of the clavicle with respect to the acromion. No clavicular fracture. Normal coracoclavicular interval. No suspicious bony lesions. Please see same day shoulder radiograph for additional findings. Soft tissues: No suspicious soft tissue calcifications. IMPRESSION: 1. Half shaft width superior displacement of the clavicle with respect to the acromion which may represent ligamentous injury. 2. Please see same day shoulder radiograph for additional findings. Dictated by: Oskar Espinal M.D. on 10/07/2023 at 14:42 Approved by: Oskar Espinal M.D. on 10/07/2023 at 14:45
--- NOTE | 2023-10-07 08:31 | DI.RAD.S_ITS ---
PROCEDURE: XR HUMERUS LT 2V INDICATIONS: Left upper extremity injury TECHNIQUE: 2 views of the humerus were acquired. COMPARISON: None. FINDINGS: Bones: No acute fracture of the mid to distal humerus. No suspicious bony lesions. Soft tissues: No suspicious soft tissue calcifications. IMPRESSION: No acute fracture of the mid to distal humerus. Please see same day shoulder radiograph for detailed description of greater tuberosity fracture. Dictated by: Oskar Espinal M.D. on 10/07/2023 at 14:47 Approved by: Oskar Espinal M.D. on 10/07/2023 at 14:48
== END ==
PROVIDERS: PCP Internal Medicine; Referring Provider Nurse Practitioner Family; Visit Provider Nurse Practitioner Family
DX: S42.252A Displaced fracture of greater tuberosity of left humerus, initial encounter for closed fracture (principal); S49.92XA Unspecified injury of left shoulder and upper arm, initial encounter; X58.XXXA Exposure to other specified factors, initial encounter
CPT/HCPCS: 73000; 73030; 73060

== ENCOUNTER → 2023-10-19 17:17 | Outpatient (CLI) | payer BC, OTHER, SELFPAY ==
--- NOTE | 2023-10-19 | DI.MRI.S_ITS ---
PROCEDURE: MR SHOULDER LT WO CON INDICATIONS: CLOSED FRACTURE OF HEAD OF LEFT HUMERUS TECHNIQUE: Noncontrast oblique coronal T2 fast spin echo with fat saturation, oblique sagittal T1 spin echo and T2 fast spin echo with fat saturation, axial T1 spin echo and T2 fast spin echo with fat saturation through the shoulder. COMPARISON: [facility], CR, XR SHOULDER LT MIN 2V, 10/07/2023, 8:33. [facility], CR, XR CLAVICLE LT, 10/07/2023, 8:33. FINDINGS: Image quality: Diagnostic Rotator cuff: Bulk: No significant atrophy Teres minor: There is mild edema at the insertion Supraspinatus: No full-thickness tear, however there is partial thickness articular sided tear near the insertion and nzry-eo-yjcyuzdl surrounding edema Infraspinatus: Moderate surrounding edema. Partial-thickness articular sided tear at the anterior fibers Subscapularis: Mild tendinosis Bones and bursae: GH joint: Congruent. There is a small joint effusion. AC joint: There is moderate edema and slight superior positioning of the clavicle in relation to the acromion. Edematous ligaments attaching to the coracoid process, but overall intact. Humeral head: Moderate edema centered at the greater tuberosity, with a mildly displaced fracture line. Scapula and acromion: Mild edema is seen at the articular and things surface of the acromion Bursa: Tumn-xa-bucjuyif bursitis Capsule: Labrum: Suspected semi circumferential labral separation from about 12:00. to 5:00, with intermediate signal suggesting scar/remodeling. Long head biceps tendon: Normally situated in the bicipital groove. There is intra-articular tendinosis IGHL: Pericapsular moderate edema Rotator interval: Edema is seen in the rotator interval Soft tissues: No axillary adenopathy. Lungs are not well seen. IMPRESSION: Mildly displaced greater tuberosity fracture. Moderate persistent edema. Likely traumatic injury to the acromioclavicular joint, with mild superimposed degenerative changes. Slight superior positioning of the clavicle in relation to the acromion, and edema of the ligaments connecting the AC joint to the coracoid process, without full-thickness tear. Suspected semi circumferential labral separation with evidence of scar/remodeling, probably nonacute. Consider future arthrogram if this needs further evaluation. Edema and partial articular tears of the rotator cuff tendons attaching to the greater tuberosity. Subacromial/subdeltoid bursitis, and edema related to capsulitis. Small glenohumeral joint effusion. Dictated by: Charan Oliva M.D. on 10/20/2023 at 8:36 Approved by: Charan Oliva M.D. on 10/20/2023 at 8:46
== END ==
PROVIDERS: PCP Internal Medicine; Referring Provider Physician Assistant; Visit Provider Physician Assistant
DX: S42.252A Displaced fracture of greater tuberosity of left humerus, initial encounter for closed fracture (principal); S46.012A Strain of muscle(s) and tendon(s) of the rotator cuff of left shoulder, initial encounter; M75.52 Bursitis of left shoulder; M25.412 Effusion, left shoulder
CPT/HCPCS: 73221

== ENCOUNTER → 2024-02-21 08:15 | Outpatient (CLI) | payer BC, OTHER, SELFPAY ==
--- NOTE | 2024-02-21 | DI.MG.S_ITS ---
BILATERAL DIGITAL SCREENING MAMMOGRAM 3D/2D WITH CAD: 02/21/2024 CLINICAL: Routine screening. Comparison is made to exams dated: 02/17/2023 mammogram, 01/27/2022 mammogram, and 12/18/2021 mammogram - [facility]. Both breasts are heterogeneously dense, which may obscure small masses (category c / 51-75% glandular tissue). Current study was also evaluated with a Computer Aided Detection (CAD) system. There is a biopsy clip in the left breast. No significant masses, calcifications, or other findings are seen in either breast. There has been no significant interval change. IMPRESSION: NEGATIVE There is no mammographic evidence of malignancy. A 1 year screening mammogram is recommended. Based on the Tyrer Cuzick model (a risk assessment model) the patient's lifetime risk is 13.0% and her 10 year risk is 4.8%. According to the ACR, ACS, and NCCN guidelines, an annual breast MRI exam along with mammogram is recommended if the patient's lifetime risk is 20% or greater. This exam was interpreted at Station ID: [id number]. NOTE: For mammograms, a report in lay terms will be sent to the patient. Approximately 15% of breast malignancies will not be visualized mammographically. In the management of a palpable breast mass, a negative mammogram must not discourage biopsy of a clinically suspicious lesion. Electronically Signed By: George faulkner/belinda:02/21/2024 10:56:45 letter sent: Normal Exam ACR BI-RADS Category 1: Negative 3341F
== END ==
LOC: MAMMO 08:17
PROVIDERS: PCP Internal Medicine; Referring Provider Internal Medicine; Visit Provider Internal Medicine
DX: Z12.31 Encounter for screening mammogram for malignant neoplasm of breast (principal); R92.333 Mammographic heterogeneous density, bilateral breasts
CPT/HCPCS: 77063; 77067

== ENCOUNTER 2024-07-25 12:08 | Day surgery (SDC) | payer BC, OTHER, SELFPAY ==
--- NOTE | 2024-07-25 | PATH_ITS ---
[facility] Accession Number: [id number] No. of containers..02 Tissue . 01 Material submitted: . PART A: colon - DESCENDING POLYP PART B: sigmoid colon - SIGMOID POLYP . 01 Diagnosis: A. Colon, descending polyp biopsy: - Tubular adenoma -- B. Colon, sigmoid polyp biopsy: - Tubular adenoma TXN 07/28/2024 1204 Local . 01 Electronically signed: . Jac Waddell MD, Pathologist NPI- [id number] . 01 Gross description: . A. Received in formalin with two patient identifiers and descending colon polyp, is a simons soft tissue fragments, 0.3 cm in greatest dimension. Submitted in A1. B. Received in formalin with two patient identifiers and sigmoid polyp, are two simons soft tissue fragments, 0.3 cm each in greatest dimension. Submitted in B1. ([id number]) /MRV 07/26/2024 1820 Local . 01 Pathologist provided ICD-10: D12.6 . 01 CPT . 614286, [id number] Specimen Comment: A courtesy copy of this report has been sent to [phone] Performed at: [address] [address], [place], [place] [id number] MD Constantin Natarajan MD Phone: [phone]
[2024-07-25 12:40] VITALS: BP 148/83; PULSE 53; RESP 16; TEMP 36.8; O2SAT 99
--- NOTE | 2024-07-25 13:01 | PM.HP.1 ---
History of Present Illness History of Present Illness Date Patient Seen: 07/25/24 Time Patient Seen: 13:01 Chief complaint: SDC Narrative: 58-year-old woman personal history of colonic polyps here for screening colonoscopy. Last colonoscopy 5 years ago. No family history of colon cancer in first-degree relatives. No abdominal concerns today. [facility] Medical History Bicuspid aortic valve Surgical History Status post ureteral reimplantation Family History Child Age: 31 ADHD (attention deficit hyperactivity disorder) Motor tic disorder Father Melanoma Gout Hypertension Social History household members: spouse Smoking Status: Never smoker Meds Home Medications and Allergies Home Medications Medication Instructions Recorded Confirmed Type Cetirizine Hydrochloride (ZYRTEC) 5 mg PO Q DAY PRN ##0 08/31/11 07/25/24 History multivitamin 1 tab PO DAILY 06/27/19 07/25/24 History Allergies Allergy/AdvReac Type Severity Reaction Status Date / Time No Known Drug Allergies Allergy Verified 07/25/24 12:51 Exam Vital Signs (past 8 hours): - 07/25/24 12:40 Temperature 98.3 F Pulse Rate 53 L Respiratory Rate 16 Blood Pressure 148/83 H Pulse Oximetry 99 Oxygen Delivery Method Room Air Oxygen Delivery Method Room Air Narrative Exam Narrative: General adult woman alert oriented no acute distress Chest nonlabored respiration Extremities warm well perfused Assessment & Plan Assessment and plan (1) Personal history of colonic polyps: Status: Acute Assessment & Plan narrative: The patient requires colorectal screening and colonoscopy is recommended. Technical details were discussed. Risks, benefits, alternatives explained. Risks including but not limited to myocardial infarction, aspiration, bleeding, pain, missed lesion, incomplete examination, need for further radiographic studies, intestinal injury, and need for major abdominal surgery were discussed. All questions were answered to their satisfaction, and they are in agreement with this plan. Time-Based Coding :: [TOTAL MINUTES] spent with patient and on the chart (including review of chart, obtaining history, exam, reviewing outside data, placing orders, documenting exam and treatment plan, and counseling patient) on [DATE].
[2024-07-25] MEDS: LACTATED RINGERS 1,000 ML 42 ML IV (13:02)
--- NOTE | 2024-07-25 13:06 | P.OP.COLON_ITS ---
Operative Date/Time/Diagnoses Date of procedure: 07/25/24 Time of procedure: 13:06 Pre-op diagnosis: Personal history of colonic polyps Procedure & Clinicians Study performed: Colonoscopy Same procedure as scheduled: Yes Indications: Screening History of polyps Surgeon: Harmeet Orona Procedure Notes Procedure in detail: The history and physical was performed/updated and the patient is ASA class is 2. The procedure was discussed in detail with the patient. Potential risks complications including infection, bleeding, missed diagnosis, perforation, need for surgery, and were explained. Their questions were answered and informed consent was obtained. Patient was brought to the procedure room and placed standard monitoring equipment. The patient's vital signs were monitored continuously throughout the entire procedure. Prior to starting time-out was performed. The patient was placed in the left lateral recumbent position. Procedural sedation was administered by anesthesia. Examination began with a thorough inspection of the perianal area there was no evidence of fissures, fistulae, external hemorrhoids or cutaneous malignancy. The colonoscopy scope was then placed into the anal canal and was advanced to the cecum, which was identified by the ileocecal valve, the appendiceal orifice and the confluence of the taenia. The scope was then slowly withdrawn examining colon thoroughly in all directions, irrigating it of any residual stool. The scope was retroflexed within the rectum The patient tolerated the procedure well. They will be discharged once criteria are met. The prep was of good/excellent quality. The withdrawl time was 9 minutes. FINDINGS * Descending colon 3 mm polyp removed with biopsy forceps * Sigmoid colon 3 mm polyp removed with biopsy forceps * Diverticulosis of distal colon Specimen(s): other (Descending and sigmoid colon polyps) Impression: Colonic polyps x2 Post-procedure Recommendations: High fiber diet Plan for aftercare: Follow-up is dependent on pathology findings likely 5 years Disposition: same day surgery
[2024-07-25 13:31] VITALS: BP 102/48; PULSE 59; RESP 20; TEMP 36.8; O2SAT 98
[2024-07-25 13:32] VITALS: BP 111/54; PULSE 59; RESP 12; O2SAT 100
[2024-07-25 13:39] VITALS: BP 103/62; PULSE 54; RESP 12; O2SAT 99
[2024-07-25 13:42] VITALS: BP 108/55; PULSE 46; RESP 12; TEMP 36.7; O2SAT 100
[2024-07-25 13:48] VITALS: BP 118/59; PULSE 46; RESP 18; O2SAT 100
== END 2024-07-25 13:59 | disposition home or self-care (01) ==
PROVIDERS: PCP Family Medicine; Referring Provider Surgery; Visit Provider Surgery
PROC: 0DJD8ZZ Inspection of Lower Intestinal Tract, Via Natural or Artificial Opening Endoscopic (ICD-10-PCS; CPT 45378; principal; 2024-07-25 13:15)
DX: Z12.11 Encounter for screening for malignant neoplasm of colon (principal); Z86.0100 Personal history of colon polyps, unspecified; K57.30 Diverticulosis of large intestine without perforation or abscess without bleeding; D12.4 Benign neoplasm of descending colon; D12.5 Benign neoplasm of sigmoid colon
CPT/HCPCS: 45380; J2704

== ENCOUNTER → 2025-01-05 10:18 | Outpatient (CLI) | payer OTHER, SELFPAY ==
--- NOTE | 2025-01-05 10:21 | DI.RAD.S_ITS ---
PROCEDURE: XR CHEST 2V INDICATIONS: ACUTE COUGH TECHNIQUE: 2 views of the chest were acquired. COMPARISON: None. FINDINGS: Surgical changes and devices: None. Lungs and pleura: Lungs are clear. No pleural effusions or pneumothorax. Mediastinum: Mediastinal contours are normal. Heart size is normal. Bones and chest wall: No suspicious bony abnormalities. Soft tissues appear unremarkable. IMPRESSION: No acute cardiopulmonary abnormality is seen. Dictated by: Lesly Tse M.D. on 01/05/2025 at 14:51 Approved by: Lesly Tse M.D. on 01/05/2025 at 14:51
== END ==
LOC: RAD 10:20
PROVIDERS: PCP Family Medicine; Referring Provider Family Medicine; Visit Provider Family Medicine
DX: R05.1 Acute cough (principal)
CPT/HCPCS: 71046

== ENCOUNTER 2025-01-31 13:31 | Emergency (ER) | payer OTHER, SELFPAY ==
--- NOTE | 2025-01-31 13:43 | DI.RAD.S_ITS ---
PROCEDURE: XR SHOULDER LT MIN 2V INDICATIONS: fall snowboarding TECHNIQUE: 3 views of the shoulder were acquired. COMPARISON: [facility], CR, XR SHOULDER LT MIN 2V, 10/07/2023, 8:33. FINDINGS: Bones: Displaced and comminuted proximal humeral fracture. Widening of the acromioclavicular interval is stable compared to prior. No suspicious bony lesions. Visualized ribs appear intact. Soft tissues: No suspicious soft tissue calcifications. IMPRESSION: Displaced and comminuted proximal humeral fracture. Dictated by: Jose De Jesus Reddy M.D. on 01/31/2025 at 15:12 Approved by: Jose De Jesus Reddy M.D. on 01/31/2025 at 15:13
[2025-01-31 13:51] VITALS: BP 156/91; PULSE 83; RESP 17; TEMP 36.6; O2SAT 100; BMI 22.1
--- NOTE | 2025-01-31 14:42 | ED_ITS ---
HPI - Extremity Injury (Upper) <Didi Killian PA-C - Last Filed: 01/31/25 17:45> General Chief Complaint: Extremity Injury, Upper Stated Complaint: Per patient. possible broken left shoulder Time Seen by Provider: 01/31/25 14:07 Source: patient Mode of arrival: Ambulatory History of Present Illness HPI narrative: Ms. Minnie Johnston is a very pleasant right hand dominant 59-year-old female with a past medical history of bicuspid aortic valve, left humeral head fracture with rotator cuff tear September 2023 treated nonsurgically who presents to the emergency department for left shoulder pain/injury that occurred while snowboarding prior to arrival. Patient was at [facility], about 2 hours away, snowboarding with a helmet on when she fell backwards and braced herself using an outstretched arm behind her and developed immediate pain of her left shoulder. She was evaluated by timber skidder and came directly to the emergency department here. She reports pain primarily on the anterior, lateral and posterior aspect of the left shoulder. She denies any pain in the left elbow, left wrist, left hand, collarbone, right upper extremity, lower extremities, head neck or back. No loss of consciousness or head pain/trauma. She took 3 ibuprofen prior to arrival. She was placed into a left arm sling and reports that the pain is only about a 3 when she has not moving. No numbness tingling or weakness of the left extremity. Related Data Home Medications Medication Instructions Recorded Confirmed cetirizine 10 mg tablet (Zyrtec) 10 mg PO DAILY 01/31/25 01/31/25 Previous Rx's Medication Instructions Recorded hydrocodone 5 mg-acetaminophen 325 1 tab PO Q4-6H PRN pain 3 days #12 01/31/25 mg tablet tabs Allergies Allergy/AdvReac Type Severity Reaction Status Date / Time No Known Drug Allergies Allergy Verified 01/31/25 13:55 Review of Systems <Didi Killian PA-C - Last Filed: 01/31/25 17:45> Review of Systems ROS Unobtainable: All systems reviewed & are unremarkable except as noted in HPI and below Patient History <Didi Killian PA-C - Last Filed: 01/31/25 17:45> Medical History Bicuspid aortic valve Surgical History Status post ureteral reimplantation Family History Child Age: 31 ADHD (attention deficit hyperactivity disorder) Motor tic disorder Father Melanoma Gout Hypertension Social History household members: spouse Smoking Status: Never smoker Smoking Status: Never smoker alcohol intake frequency: holidays/special occasions only Exam <Didi Killian PA-C - Last Filed: 01/31/25 17:45> Narrative Exam Narrative: GENERAL: 59 year old patient appears stated age. Well-developed patient, in no acute distress. HEAD: Atraumatic. Normocephalic. EYES: Extraocular motions intact. No scleral icterus. No injection or drainage. ENT: Nose without bleeding, purulent drainage. NECK: Trachea midline. Cervical ROM intact. CARDIOVASCULAR: Regular rate and rhythm. RESPIRATORY: ?Nonlabored respirations. ?Speaking in clear, full sentences. ?Clear to auscultation. Breath sounds equal bilaterally. No wheezes, rales, or rhonchi. ? EXTREMITIES: Patient in left arm sling for left shoulder pain. She is tenderness to palpation of the anterior, lateral and posterior proximal left humerus/rotator cuff region. Tenderness to palpation over the AC joint region but no left clavicular tenderness. No tenderness to palpation of distal left humerus, left elbow, left forearm, left wrist, left snuffbox, left hand. Full strength and range of motion and SITLT in the distribution of the median, ulnar, radial nerve of the left extremity. Strong radial pulse and brisk capillary refill bilaterally. No wounds overlying the left shoulder. BACK: Nontender without deformity or crepitance. No flank tenderness. NEURO: AOx3. ?Clear speech. ?Sensation intact to light touch throughout the extremities. SKIN: No rash or wounds. Initial Vital Signs Initial Vital Signs: Vital Signs Temperature 98 F 01/31/25 13:51 Pulse Rate 83 01/31/25 13:51 Respiratory Rate 17 01/31/25 13:51 Blood Pressure 156/91 H 01/31/25 13:51 Pulse Oximetry 100 01/31/25 13:51 Oxygen Delivery Method Room Air 01/31/25 13:51 <Noble Pete MD - Last Filed: 01/31/25 20:08> Initial Vital Signs Initial Vital Signs: Vital Signs Temperature 98 F 01/31/25 13:51 Pulse Rate 83 01/31/25 13:51 Respiratory Rate 17 01/31/25 13:51 Blood Pressure 156/91 H 01/31/25 13:51 Pulse Oximetry 100 01/31/25 13:51 Oxygen Delivery Method Room Air 01/31/25 13:51 Course <Didi Killian PA-C - Last Filed: 01/31/25 17:45> Orders Ordered: ED Orders 01/31/25 13:43 XR shoulder LT min 2V Stat Discontinued Medications Acetaminophen (Acetaminophen 325 Mg Tablet) 650 mg PO NOW ONE Stop: 01/31/25 14:57 Last Admin: 01/31/25 15:15 Dose: 650 mg Documented By: JEANNE Vital Signs Vital signs: Vital Signs - 8 hr 01/31/25 13:51 01/31/25 16:23 Temperature 98 F Pulse Rate 83 71 Respiratory Rate 17 18 Blood Pressure 156/91 H 129/74 Pulse Oximetry 100 99 Oxygen Delivery Method Room Air Room Air <Noble Pete MD - Last Filed: 01/31/25 20:08> Orders Ordered: ED Orders 01/31/25 13:43 XR shoulder LT min 2V Stat Discontinued Medications Acetaminophen (Acetaminophen 325 Mg Tablet) 650 mg PO NOW ONE Stop: 01/31/25 14:57 Last Admin: 01/31/25 15:15 Dose: 650 mg Documented By: JEANNE Vital Signs Vital signs: Vital Signs - 8 hr 01/31/25 13:51 01/31/25 16:23 Temperature 98 F Pulse Rate 83 71 Respiratory Rate 17 18 Blood Pressure 156/91 H 129/74 Pulse Oximetry 100 99 Oxygen Delivery Method Room Air Room Air MDM - Extremity Injury (Upper) <Didi Killian PA-C - Last Filed: 01/31/25 17:45> Medical Records Attestation: I reviewed the patient's medical records. Medical records narrative: 10/07/2023, left shoulder x-ray revealed an acute mildly displaced fracture of the greater tuberosity of the humeral head. Imaging Data Left Shoulder XR: My Impression: On my independent interpretation of left shoulder x-ray there is a fracture of the proximal humerus. Radiologist's Impression: PROCEDURE: XR SHOULDER LT MIN 2V INDICATIONS: fall snowboarding TECHNIQUE: 3 views of the shoulder were acquired. COMPARISON: [facility], CR, XR SHOULDER LT MIN 2V, 10/07/2023, 8:33. FINDINGS: Bones: Displaced and comminuted proximal humeral fracture. Widening of the acromioclavicular interval is stable compared to prior. No suspicious bony lesions. Visualized ribs appear intact. Soft tissues: No suspicious soft tissue calcifications. IMPRESSION: Displaced and comminuted proximal humeral fracture. MDM Narrative Medical decision making narrative: 59-year-old female with a past medical history of bicuspid aortic valve, left humeral head fracture with rotator cuff tear September 2023 treated nonsurgically who presents to the emergency department for left shoulder pain/injury that occurred while snowboarding prior to arrival. Differential diagnosis includes but is not limited to left shoulder fracture, sprain, strain, rotator cuff injury, AC joint separation, etc. On exam the patient is in no acute distress, nontoxic appearing, vital signs appropriate. She was placed into a left arm sling for significant pain with any range of motion of left shoulder. She has tenderness to palpation of the entire left shoulder joint region with no open wounds. The left upper extremity is neurovascularly intact. X-ray left shoulder obtained in triage revealing obvious left humeral neck fracture. Patient took 3 ibuprofen prior to arrival, declines opioids at this time she needs to drive herself home, we will treat with acetaminophen and consult orthopedics for further management. X-ray reveals displaced and comminuted proximal humeral fracture. Discussed case with on-call orthopedic surgeon Dr. Hutton who recommends sling and outpatient follow up in 1 week. Patient's pain is well controlled with sling in the emergency department. She was prescribed a short course of hydrocodone/acetaminophen to use as needed for severe pain, also recommended rice therapy, ibuprofen/acetaminophen. Narcotic risks discussed. Strict ED return precautions were discussed. Patient was provided with appropriate information for orthopedic follow up. She verbalized understanding of all information is agreeable with the plan. She is stable for discharge home. Discharge Plan Departure Patient Disposition: Home Clinical Impression: Accidental fall from snowboard Closed fracture of left proximal humerus Qualifiers: Encounter type: initial encounter Fracture morphology: unspecified fracture morphology Qualified Code(s): S42.202A - Unspecified fracture of upper end of left humerus, initial encounter for closed fracture Instructions: DI for Shoulder Fracture Activity Restrictions/Additional Instructions: Dear Ms. Johnston, Thank you for coming to the emergency department. Today you were evaluated for left shoulder injury and found to have a proximal left humeral fracture. Please call to schedule an appointment with [facility], Dr. Hutton, for further evaluation within the next week. Please continue using the left arm sling. Please use RICE therapy for your pain in addition to ibuprofen/acetaminophen. Rest the painful area. Ice the area of pain/swelling for at least 15 minutes, 4x a day. Compress the area of swelling using a brace, wrap, or splint if applied. Elevate the painful or swollen extremity by supporting it above the level of the heart with pillows when sitting or laying. Please take Ibuprofen (Motrin/Advil) or Acetaminophen (Tylenol) for pain. These are available over the counter. You may take Ibuprofen 600 mg every 8 hours with food for pain. You may also take Acetaminophen 650 mg every 4-6 hours for pain. Do not exceed 3000 mg of Tylenol a day as this can cause liver damage. Do not drink alcohol with either of these medications. You have been prescribed a short course of narcotic medications. These are potentially dangerous and addictive medications that should be used carefully. While on these medications you cannot drive or operate heavy machinery. Additionally, you cannot sign legal documents or perform any duties such as this. Many people get constipated on narcotic medications so it would be advisable to discuss stool softeners with the pharmacist when you leaf size picker your prescription. Please understand that we cannot provide further refills of narcotics or controlled substances through the ED and your pain management will need to be through your Primary Care Provider Please follow up with your primary care doctor within the next 2-3 days for ER follow-up. (If you do not have a PCP you can call [phone]. ?to schedule an appointment with an [facility] Primary Care Provider) IF YOU DEVELOP ANY NEW OR WORSENING SYMPTOMS, RETURN TO THE ER! Please read the attached instructions, they highlight more specific treatments and interventions for you at home. Thank you for letting me participate in your care, Didi Killian PA-C Prescriptions: New hydrocodone-acetaminophen 5-325 mg tablet 1 tab PO Q4-6H PRN (Reason: pain) 3 Days Qty: 12 0RF No Action cetirizine [Zyrtec] 10 mg Tablet 10 mg PO DAILY Referrals: Lanny Hutton MD [Physician] - (displaced and comminuted proximal humeral fracture, Left, snowboarding fall ) Mary Kate Bonilla MD [Primary Care Provider] - Stand Alone Forms: Patient Portal/API/Survey, Work Release Note ED Sign-out <Noble Pete MD - Last Filed: 01/31/25 20:08> Cosign ED Attending Cosignature Attestation: I was immediately available in the department for consultation. This documentation has been reviewed and I agree with assessment and plan. Supervised by Noble Pete MD
[2025-01-31] MEDS: ACETAMINOPHEN 325 MG TABLET 650 MG PO (15:15)
--- NOTE | 2025-01-31 16:20 | PC.NURSE ---
Addendum entered by Shani Sheppard R.N. 01/31/25 16:22: No head trauma involved. Original Note: Left shoulder pain. Pt reports she was snowboarding when she fell unexpectedly--states her left arm went out when she fell. swelling and tenderness just below shoulder. PMS intact. Pt reports breaking her clavicle and humeral head on the left side as well in the past.
[2025-01-31 16:23] VITALS: BP 129/74; PULSE 71; RESP 18; O2SAT 99
== END 2025-01-31 16:23 | disposition home or self-care (01) ==
PROVIDERS: Emergency Provider Physician Assistant; PCP Family Medicine
DX: S42.202A Unspecified fracture of upper end of left humerus, initial encounter for closed fracture (principal); V00.311A Fall from snowboard, initial encounter
CPT/HCPCS: 73030; 99283

== ENCOUNTER → 2025-05-02 08:24 | Outpatient (CLI) | payer OTHER, SELFPAY ==
--- NOTE | 2025-05-02 08:28 | DI.MG.S_ITS ---
MM screening mammo BI: 05/02/2025. BI-RADS: 2 CLINICAL: 59-year old female for bilateral screening mammogram. Tyrer-Cuzick lifetime risk of 8.9%. No personal or first-degree family history of breast cancer. The patient had a prior left breast biopsy. PRIOR EXAMS 02/21/2024, 02/17/2023, 01/27/2022, 12/18/2021. MAMMOGRAPHY TECHNIQUE: 2D and 3D (tomosynthesis) digital mammographic views obtained, with additional images as needed for full coverage. Current study was also evaluated with a Computer Aided Detection (CAD) system. DENSITY C. The breasts are heterogeneously dense, which may obscure small masses. MAMMOGRAPHY FINDINGS Right: No suspicious mass, asymmetry, microcalcification, or other abnormality seen. No significant change from comparison. Left: Biopsy marker present on the left. There are no suspicious masses, calcifications, or other findings in the breast. No significant change from comparison. IMPRESSION: Right * No evidence of malignancy. Left * No evidence of malignancy with benign findings. RECOMMENDATIONS Bilateral * Annual screening mammography. OVERALL ASSESSMENT CATEGORY BI-RADS-2: Benign. [employer] recommends annual screening mammography beginning at age 40 for women with average risk of breast cancer. PRELIMINARILY ELECTRONICALLY SIGNED: Jessica Rust M.D. on 05/02/2025 at 03:58:09 PM PT ELECTRONICALLY SIGNED: Jessica Rust M.D. on 05/04/2025 at 05:19:16 PM PT Interpreting Station ID: [id number]
== END ==
PROVIDERS: PCP Family Medicine; Referring Provider Family Medicine; Visit Provider Family Medicine
DX: Z12.31 Encounter for screening mammogram for malignant neoplasm of breast (principal); R92.333 Mammographic heterogeneous density, bilateral breasts
CPT/HCPCS: 77063; 77067

== ENCOUNTER → 2025-08-13 09:25 | Outpatient (CLI) | payer OTHER, SELFPAY ==
--- NOTE | 2025-08-13 09:28 | DI.RAD.S_ITS ---
PROCEDURE: XR FOOT LT 2V INDICATIONS: Injury of left ankle, initial encounter TECHNIQUE: 2 views of the foot were acquired. COMPARISON: None. FINDINGS: Bones: Subacute transverse intra-articular fracture of the base of the 5th metatarsal. No dislocations. No suspicious bony lesions. Soft tissues: No tibiotalar joint effusion. Achilles tendon appears normal. IMPRESSION: Subacute transverse intra-articular fracture of the 5th metatarsal tuberosity. Dictated by: Karlos Sanchez M.D. on 08/13/2025 at 10:26 Approved by: Karlos Sanchez M.D. on 08/13/2025 at 10:27
== END ==
PROVIDERS: PCP Family Medicine; Referring Provider Family Medicine; Visit Provider Family Medicine
DX: S92.352A Displaced fracture of fifth metatarsal bone, left foot, initial encounter for closed fracture (principal); X58.XXXA Exposure to other specified factors, initial encounter
CPT/HCPCS: 73620